=== PATIENT | male | born 1955 | race Caucasian/White ===

== ENCOUNTER 2018-01-17 11:22 | Emergency (ER) | payer MEDICARE ==
[2018-01-17 13:31] VITALS: RESP 18
[2018-01-17 13:40] LABS: Basophils % (A) 0 %; Eosinophils # (A) 0.4 k/uL (0-0.7); Eosinophils % (A) 5 %; HCT 43.5 % (39.0-53.0); HGB 14.3 gm/dL (13.0-17.5); Lymphocytes # (A) 0.9 k/uL (1.0-4.8); Lymphocytes % (A) 11 %; MCH 26.9 pg (25.0-35.0); MCHC 32.9 g/dL (31.0-37.0); MCV 81.7 fL (80.0-100.0); Mean Platelet Volume 6.6; Monocytes # (A) 0.4 k/uL (0-1.0); Monocytes % (A) 5 %; Neutrophils # (A) 6.3 k/uL (1.3-7.7); Neutrophils % (A) 77 %; Platelet Count 315 k/uL (150-450); RBC 5.32 m/uL (4.30-5.90); RDW 13.4 % (11.5-15.5); WBC 8.2 k/uL (3.8-10.6)
[2018-01-17 13:52] LABS: D-Dimer 0.52 mg/L FEU (<0.60); Partial Thromboplastin Time 25.7 sec (22.0-30.0); Prothrombin Time 9.9 sec (9.0-12.0)
[2018-01-17 13:53] LABS: ALT 61 U/L (21-72); AST 32 U/L (17-59); Albumin 4.4 g/dL (3.5-5.0); Alkaline Phosphatase 98 U/L (38-126); Anion Gap 11 mmol/L; Blood Urea Nitrogen 11 mg/dL (9-20); Calcium 9.9 mg/dL (8.4-10.2); Carbon Dioxide 29 mmol/L (22-30); Chloride 101 mmol/L (98-107); Glucose 98 mg/dL (74-99); Potassium 4.5 mmol/L (3.5-5.1); Sodium 141 mmol/L (137-145); Total Bilirubin 0.7 mg/dL (0.2-1.3); Total Protein 7.1 g/dL (6.3-8.2)
--- NOTE | 2018-01-17 14:03 | XR ---
EXAMINATION TYPE: XR chest 2V DATE OF EXAM: 01/17/2018 COMPARISON: NONE HISTORY: Shortness of breath TECHNIQUE: Frontal and lateral views of the chest are obtained. FINDINGS: Scattered senescent parenchymal changes noted. No evidence for infiltrate. No evidence for atelectasis. Heart size is stable. Mediastinal structures are stable and grossly unremarkable. No evidence for hilar prominence. Degenerative changes dorsal spine. IMPRESSION: 1. No evidence for acute pulmonary disease.
--- NOTE | 2018-01-17 14:07 | XR ---
EXAMINATION TYPE: XR cervical spine comp DATE OF EXAM: 01/17/2018 CLINICAL HISTORY: pain COMPARISON: NONE TECHNIQUE: Frontal, lateral, oblique, swimmers, and open mouth view of the cervical spine are obtaine d. FINDINGS: There is reversal of normal cervical lordosis which can be seen in patients with muscle spa sticity. Severe degenerative disc space narrowing and spondylosis identified at C5-6 and C6-7. No donald dence for acute fracture or subluxation. Foraminal encroachment seen bilaterally at C6-7. IMPRESSION: No acute fracture or dislocation is seen in the cervical spine.ICD 10 NO FRACTURE, INITI AL EVALUATION
--- NOTE | 2018-01-17 14:44 | ED ---
General Adult HPI - General Chief complaint: Recheck/Abnormal Lab/Rx Stated complaint: arm pain Time Seen by Provider: 01/17/18 13:08 Source: patient, RN notes reviewed Mode of arrival: ambulatory Limitations: no limitations - History of Present Illness Initial comments: This a 62-year-old male presents emergency Department chief complaint right arm pain. Patient states symptoms have been present for last day or so. Patient states that he felt that it slipped and wrong he has no associated weakness. Patient states it's worse with movement. He denies headache, dizziness, nausea , vomiting, diarrhea patient denies any fevers chills chest pain or shortness of breath. He states that he had spasm on the left side of his ribs that resolved after only a few seconds. Patient went to urgent care sent here for further evaluation because of his history. Patient denies current chest pain. - Related Data Home Medications Medication Instructions Recorded Confirmed Aspirin 81 mg PO DAILY 01/17/18 01/17/18 Calcium Carbonate [Calcium] 600 mg PO DAILY 01/17/18 01/17/18 Dapsone 50 mg PO HS 01/17/18 01/17/18 Levothyroxine Sodium [Synthroid] 225 mcg PO DAILY 01/17/18 01/17/18 Lisinopril 40 mg PO DAILY 01/17/18 01/17/18 Metoprolol Succinate [Toprol XL] 50 mg PO DAILY 01/17/18 01/17/18 Multivitamins, Thera [Multivitamin 1 tab PO DAILY 01/17/18 01/17/18 (formulary)] Simvastatin [Zocor] 40 mg PO DAILY 01/17/18 01/17/18 amLODIPine [Norvasc] 5 mg PO DAILY 01/17/18 01/17/18 Allergies Allergy/AdvReac Type Severity Reaction Status Date / Time gluten Allergy Rash/Hives Verified 01/17/18 12:18 Review of Systems ROS Statement: Those systems with pertinent positive or pertinent negative responses have been documented in the HPI. ROS Other: All systems not noted in ROS Statement are negative. Past Medical History Past Medical History: Cancer, Hyperlipidemia, Hypertension Additional Past Medical History / Comment(s): prostate, lymphoma, thyroid and melanoma cancer History of Any Multi-Drug Resistant Organisms: None Reported Additional Past Surgical History / Comment(s): lymph node removal Past Psychological History: No Psychological Hx Reported Smoking Status: Never smoker Past Alcohol Use History: None Reported Past Drug Use History: None Reported General Exam Limitations: no limitations General appearance: alert, in no apparent distress Head exam: Present: atraumatic, normocephalic, normal inspection Eye exam: Present: normal appearance, PERRL, EOMI. Absent: scleral icterus, conjunctival injection, periorbital swelling Neck exam: Present: normal inspection, full ROM. Absent: tenderness, meningismus, lymphadenopathy Respiratory exam: Present: normal lung sounds bilaterally. Absent: respiratory distress, wheezes, rales, rhonchi, stridor, chest wall tenderness Cardiovascular Exam: Present: regular rate, normal rhythm, normal heart sounds. Absent: systolic murmur, diastolic murmur, rubs, gallop, clicks GI/Abdominal exam: Present: soft, normal bowel sounds. Absent: distended, tenderness, guarding, rebound, rigid Course Vital Signs 01/17/18 01/17/18 11:43 13:30 Temperature 98.0 F Pulse Rate 73 69 Respiratory 20 18 Rate Blood Pressure 138/81 145/65 O2 Sat by Pulse 96 95 Oximetry Medical Decision Making - Medical Decision Making 62-year-old male presented for right arm pain. This is not cardiac in nature. Patient has normal lab work. Patient chest x-ray is unremarkable does have severe degenerative changes on cervical x-ray. Patient's symptoms are related to cervical radiculopathy. Patiently discharges time he states he'll take Tylenol Motrin return for any worsening symptoms. - Lab Data Result diagrams: 01/17/18 13:25 01/17/18 13:25 Lab Results 01/17/18 01/17/18 01/17/18 Range/Units 13:25 13:25 13:25 WBC 8.2 (3.8-10.6) k/uL RBC 5.32 (4.30-5.90) m/uL Hgb 14.3 (13.0-17.5) gm/dL Hct 43.5 (39.0-53.0) % MCV 81.7 (80.0-100.0) fL MCH 26.9 (25.0-35.0) pg MCHC 32.9 (31.0-37.0) g/dL RDW 13.4 (11.5-15.5) % Plt Count 315 (150-450) k/uL Neutrophils % 77 % Lymphocytes % 11 % Monocytes % 5 % Eosinophils % 5 % Basophils % 0 % Neutrophils # 6.3 (1.3-7.7) k/uL Lymphocytes # 0.9 L (1.0-4.8) k/uL Monocytes # 0.4 (0-1.0) k/uL Eosinophils # 0.4 (0-0.7) k/uL Basophils # 0.0 (0-0.2) k/uL PT 9.9 (9.0-12.0) sec INR 1.0 (<1.2) APTT 25.7 (22.0-30.0) sec D-Dimer 0.52 (<0.60) mg/L FEU Sodium 141 (137-145) mmol/L Potassium 4.5 (3.5-5.1) mmol/L Chloride 101 (98-107) mmol/L Carbon Dioxide 29 (22-30) mmol/L Anion Gap 11 mmol/L BUN 11 (9-20) mg/dL Creatinine 0.87 (0.66-1.25) mg/dL Est GFR (CKD-EPI)AfAm >90 (>60 ml/min/1.73 sqM) Est GFR (CKD-EPI)NonAf >90 (>60 ml/min/1.73 sqM) Glucose 98 (74-99) mg/dL Calcium 9.9 (8.4-10.2) mg/dL Total Bilirubin 0.7 (0.2-1.3) mg/dL AST 32 (17-59) U/L ALT 61 (21-72) U/L Alkaline Phosphatase 98 (38-126) U/L Troponin I (0.000-0.034) ng/mL Total Protein 7.1 (6.3-8.2) g/dL Albumin 4.4 (3.5-5.0) g/dL 01/17/18 Range/Units 13:25 WBC (3.8-10.6) k/uL RBC (4.30-5.90) m/uL Hgb (13.0-17.5) gm/dL Hct (39.0-53.0) % MCV (80.0-100.0) fL MCH (25.0-35.0) pg MCHC (31.0-37.0) g/dL RDW (11.5-15.5) % Plt Count (150-450) k/uL Neutrophils % % Lymphocytes % % Monocytes % % Eosinophils % % Basophils % % Neutrophils # (1.3-7.7) k/uL Lymphocytes # (1.0-4.8) k/uL Monocytes # (0-1.0) k/uL Eosinophils # (0-0.7) k/uL Basophils # (0-0.2) k/uL PT (9.0-12.0) sec INR (<1.2) APTT (22.0-30.0) sec D-Dimer (<0.60) mg/L FEU Sodium (137-145) mmol/L Potassium (3.5-5.1) mmol/L Chloride (98-107) mmol/L Carbon Dioxide (22-30) mmol/L Anion Gap mmol/L BUN (9-20) mg/dL Creatinine (0.66-1.25) mg/dL Est GFR (CKD-EPI)AfAm (>60 ml/min/1.73 sqM) Est GFR (CKD-EPI)NonAf (>60 ml/min/1.73 sqM) Glucose (74-99) mg/dL Calcium (8.4-10.2) mg/dL Total Bilirubin (0.2-1.3) mg/dL AST (17-59) U/L ALT (21-72) U/L Alkaline Phosphatase (38-126) U/L Troponin I <0.012 (0.000-0.034) ng/mL Total Protein (6.3-8.2) g/dL Albumin (3.5-5.0) g/dL Disposition Clinical Impression: Cervical radiculopathy Disposition: HOME SELF-CARE Condition: Stable Instructions: Cervical Radiculopathy (ED) Additional Instructions: Please return to the Emergency Department if symptoms worsen or any other concerns. Is patient prescribed a controlled substance at d/c from ED?: No Referrals: Audie Ann MD [Primary Care Provider] - 1-2 days Time of Disposition: 14:44
[2018-01-17 14:51] VITALS: BP 129/70; PULSE 61; TEMP 97.6
== END 2018-01-17 14:53 | disposition home or self-care (01) ==
LOC: EC 11:22
DX: M54.12 Radiculopathy, cervical region (principal); E78.5 Hyperlipidemia, unspecified; I10 Essential (primary) hypertension; Z85.72 Personal history of non-Hodgkin lymphomas; Z85.850 Personal history of malignant neoplasm of thyroid; Z85.820 Personal history of malignant melanoma of skin; Z79.82 Long term (current) use of aspirin; Z79.899 Other long term (current) drug therapy; Z91.018 Allergy to other foods
CPT/HCPCS: 36415; 71046; 72050; 80053; 84484; 85025; 85379; 85610; 85730; 99283

== ENCOUNTER → 2018-10-31 | Outpatient (CLI) | payer MEDICARE ==
--- NOTE | 2018-10-31 15:45 | CT ---
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 TECHNIQUE: Examination was done in axial plane without intravenous contrast. Coronal and sagittal r econstructions performed. CT DLP: 1145.4 mGycm Automated exposure control for dose reduction was used. FINDINGS: There is no evidence of acute intracranial hemorrhage, acute ischemic changes, mass, mass-effect, or extra-axial fluid collection. There is no effacement of cerebral sulci or basal subarachnoid cister ns. There is no hydrocephalus. There is no midline shift. Sprague-white matter distinction is preserv ed. Atherosclerotic calcifications carotid siphons. Leftward nasal septal deviation. Scattered moderate mucosal thickening ethmoid air cells and a 2.4 cm polyp or mucosal retention cyst in the left frontal sinus. Lobulated mucosal thickening along the fl oors of the left greater than right maxillary sinuses. Radha bullosa right nasal cavity. Prior right cataract surgery. Otherwise, the globes appear relatively symmetric. No retrobulbar abnor mality identified. Orbits appear intact. Mastoid air cells well pneumatized. Small air fluid level ri ght sphenoid sinus. IMPRESSION: 1. Aside from prior cataract surgery on the right, the globes appear relatively symmetric. No retrobu lbar abnormality identified by noncontrast CT. 2. Moderate chronic paranasal sinus disease. Air-fluid level in the right sphenoid sinus could repres ent a superimposed acute sinusitis. 3. No acute intracranial abnormality seen.
== END | disposition home or self-care (01) ==
LOC: RADCTMAIN 14:22
PROVIDERS: ATTEND Internal Medicine
DX: R51 Headache (principal); Z98.41 Cataract extraction status, right eye; Z85.840 Personal history of malignant neoplasm of eye
CPT/HCPCS: 70450

== ENCOUNTER → 2019-12-08 | Outpatient (CLI) | payer MEDICARE ==
--- NOTE | 2019-12-08 10:36 | US ---
EXAMINATION TYPE: US venous doppler duplex LE LT DATE OF EXAM: 12/08/2019 10:09 AM COMPARISON: NONE CLINICAL HISTORY: M79.662 Pain in left lower leg. Patient felt a pop left lower leg yesterday SIDE PERFORMED: left TECHNIQUE: The lower extremity deep venous system is examined utilizing real time linear array sonog naomi with graded compression, doppler sonography and color-flow sonography. VESSELS IMAGED: External Iliac Vein (EIV) Common Femoral Vein Deep Femoral Vein Greater Saphenous Vein * Femoral Vein Popliteal Vein Small Saphenous Vein * Proximal Calf Veins (* superficial vessels) Grayscale, color doppler, spectral doppler imaging performed of the deep veins of the left lower extr emity. There is normal flow, compressibility, vascular waveforms. Left Leg: No evidence of DVT IMPRESSION: No sonographic evidence of deep venous thrombosis within the left lower extremity.
== END | disposition home or self-care (01) ==
LOC: RADUSWWP 09:39
PROVIDERS: ATTEND Internal Medicine
DX: M79.662 Pain in left lower leg (principal)

== ENCOUNTER → 2020-07-12 | Outpatient (CLI) | payer MEDICARE ==
--- NOTE | 2020-07-12 20:02 | CT ---
EXAMINATION TYPE: CT facial bones wo/w con DATE OF EXAM: 07/12/2020 COMPARISON: None HISTORY: Non hodgkins lymphoma. Pt c/o pain behind rt eye, jaw pain CT DLP: 1721.60 mGycm Automated exposure control for dose reduction was used. CONTRAST: Performed with IV Contrast, patient injected with 100 mL of Isovue 300. Images were obtained from the subglottic trachea to the top of the frontal sinuses with IV contrast. FINDINGS: The mandibular ring is intact. Temporomandibular joints appear normal. Zygomatic arches appear normal . Maxilla is intact. There is bilateral mucus retention cysts in the maxillary sinuses. Nasal bone is intact. Orbital margins are intact. There is no evidence of a blowout fracture. There is left fronta l large mucus retention cyst. There is no expansion. I see no focal bone destruction. There is no donald dence of retro-orbital mass. The globes are symmetric. There is mild ethmoid sinus mucosal thickening . Visualized temporal bones are intact. IMPRESSION: There is evidence of sinusitis with mucous retention cysts. No bone destruction. No evidence of a sof t tissue mass.
--- NOTE | 2020-07-12 20:06 | CT ---
EXAMINATION TYPE: CT soft tissue neck wo/w con DATE OF EXAM: 07/12/2020 COMPARISON: None HISTORY: Non hodgkins lymphoma. Pt c/o a feeling of a lump in throat CT DLP: 1177.90 mGycm Automated exposure control for dose reduction was used. CONTRAST: Performed with IV Contrast, patient injected with 100 mL of Isovue 300. Images were obtained from the aortic arch to the top of the frontal sinuses with IV contrast. There is normal branching of the great vessels on the aortic arch. There is no evidence of superior m ediastinal adenopathy. Thyroid gland is symmetric. There are a few anterior triangle cervical lymph n odes that measure up to 1.4 cm in greatest dimension. The parotid glands and submandibular salivary g lands are symmetric. I see no discrete neck mass. Epiglottis is normal. Prevertebral soft tissues appear normal. The tonsils and adenoids appear normal . There is no evidence of a pharyngeal mass. Subglottic trachea appears normal. There are spondylotic changes in the cervical spine at C5-6 and C6-7 with disc space narrowing and anterior spur formation . There is no compression fracture. IMPRESSION: There are few nonspecific cervical lymph nodes. No evidence of a pharyngeal mass.
== END | disposition home or self-care (01) ==
LOC: RADCTMAIN 17:55
PROVIDERS: ATTEND Family Medicine
DX: J34.1 Cyst and mucocele of nose and nasal sinus (principal); J32.9 Chronic sinusitis, unspecified; C85.90 Non-Hodgkin lymphoma, unspecified, unspecified site; C43.9 Malignant melanoma of skin, unspecified; R22.0 Localized swelling, mass and lump, head
CPT/HCPCS: 82565; 84520; 70488; 70492; 36415; Q9967

== ENCOUNTER 2021-04-26 23:59 | Observation (INO) | payer MEDICARE ==
[2021-04-27 07:39] LABS: Partial Thromboplastin Time 22.7 sec (22.0-30.0); Prothrombin Time 10.4 sec (9.0-12.0)
[2021-04-27 07:40] LABS: Basophils # (A) 0.1 k/uL (0-0.2); Basophils % (A) 1 %; Eosinophils # (A) 0.3 k/uL (0-0.7); Eosinophils % (A) 4 %; HCT 38.6 % (39.0-53.0); HGB 12.5 gm/dL (13.0-17.5); Lymphocytes # (A) 1.2 k/uL (1.0-4.8); Lymphocytes % (A) 14 %; MCH 27.9 pg (25.0-35.0); MCHC 32.3 g/dL (31.0-37.0); MCV 86.4 fL (80.0-100.0); Mean Platelet Volume 7.2; Monocytes # (A) 0.4 k/uL (0-1.0); Monocytes % (A) 5 %; Neutrophils # (A) 5.9 k/uL (1.3-7.7); Neutrophils % (A) 73 %; Platelet Count 328 k/uL (150-450); RBC 4.47 m/uL (4.30-5.90); RDW 14.7 % (11.5-15.5); WBC 8.1 k/uL (3.8-10.6)
[2021-04-27 07:43] LABS: ALT 276 U/L (4-49); AST 125 U/L (17-59); African American GFR (CKD) >90 (>60 ml/min/1.73 sqM); Albumin 3.8 g/dL (3.5-5.0); Albumin/Globulin Ratio 1.4; Alkaline Phosphatase 140 U/L (38-126); Anion Gap 7 mmol/L; Blood Urea Nitrogen 17 mg/dL (9-20); Calcium 8.9 mg/dL (8.4-10.2); Carbon Dioxide 29 mmol/L (22-30); Chloride 104 mmol/L (98-107); Globulin 2.7 g/dL; Glucose 151 mg/dL (74-99); Lipase 83 U/L (23-300); Magnesium 1.9 mg/dL (1.6-2.3); Non-African American GFR(CKD) 78 (>60 ml/min/1.73 sqM); Phosphorus 3.1 mg/dL (2.5-4.5); Potassium 3.7 mmol/L (3.5-5.1); Sodium 140 mmol/L (137-145); Total Bilirubin 0.8 mg/dL (0.2-1.3); Total Protein 6.5 g/dL (6.3-8.2)
[2021-04-27] MEDS ORDERED: NALOXONE 0.4 MG/ML 1 ML VIAL IV PRN (08:24)
[2021-04-27] MEDS ORDERED: MORPHINE SULFATE 4 MG/ML SYRINGE IV PRN (08:24)
[2021-04-27] MEDS ORDERED: ONDANSETRON 4 MG/2 ML VIAL IVP PRN (08:24)
[2021-04-27 09:12] LABS: Basophils % (A) 0 %; Eosinophils # (A) 0.1 k/uL (0-0.7); Eosinophils % (A) 2 %; HCT 38.2 % (39.0-53.0); HGB 12.1 gm/dL (13.0-17.5); Lymphocytes # (A) 0.6 k/uL (1.0-4.8); Lymphocytes % (A) 12 %; MCH 27.5 pg (25.0-35.0); MCHC 31.7 g/dL (31.0-37.0); MCV 86.7 fL (80.0-100.0); Mean Platelet Volume 6.9; Monocytes # (A) 0.3 k/uL (0-1.0); Monocytes % (A) 6 %; Neutrophils # (A) 3.7 k/uL (1.3-7.7); Neutrophils % (A) 77 %; Platelet Count 271 k/uL (150-450); RDW 14.5 % (11.5-15.5); WBC 4.7 k/uL (3.8-10.6)
[2021-04-27 09:25] LABS: African American GFR (CKD) >90 (>60 ml/min/1.73 sqM); Albumin 3.7 g/dL (3.5-5.0); Albumin/Globulin Ratio 1.4; Alkaline Phosphatase 161 U/L (38-126); Anion Gap 5 mmol/L; Blood Urea Nitrogen 14 mg/dL (9-20); Carbon Dioxide 31 mmol/L (22-30); Chloride 105 mmol/L (98-107); Globulin 2.7 g/dL; Glucose 115 mg/dL (74-99); Lipase 42 U/L (23-300); Non-African American GFR(CKD) >90 (>60 ml/min/1.73 sqM); Potassium 3.8 mmol/L (3.5-5.1); Sodium 141 mmol/L (137-145); Total Bilirubin 1.5 mg/dL (0.2-1.3); Total Protein 6.4 g/dL (6.3-8.2)
[2021-04-27 09:45] LABS: ALT 733 U/L (4-49); AST 823 U/L (17-59)
--- NOTE | 2021-04-27 09:56 | US ---
EXAMINATION TYPE: US gallbladder DATE OF EXAM: 04/27/2021 COMPARISON: NONE CLINICAL HISTORY: abdominal pain. Pain exam limitations due to body habitus. EXAM MEASUREMENTS: Liver Length: 18 cm Gallbladder Wall: .4 cm. This is thickened CBD: .5 cm Right Kidney: 11.7 x 5.9 x 5.6 cm Pancreas: Obscured by bowel gas Liver: Increased attenuation Gallbladder: Gallstone seen. Evidence for sonographic Ross's sign: No CBD: wnl Right Kidney: No hydronephrosis or masses seen IMPRESSION: 1. Hepatomegaly. Some fatty infiltration is present. 2. Cholelithiasis. Gallbladder wall thickening is present. Correlate for acute cholecystitis.
--- NOTE | 2021-04-27 11:39 | P.GSHP ---
<Britt Reese - Last Filed: 04/27/21 13:24> History of Present Illness H&P Date: 04/27/21 CHIEF COMPLAINT: Abdominal pain HISTORY OF PRESENT ILLNESS: This is a 66-year-old male with a known history of lymphoma status post radiation treatment, prostate cancer status post radiation treatment, hypertension, hyperlipidemia and melanoma. He presents to the hospital with complaints of pain across the rib cage that radiates to the back. Patient reports that the pain was very severe and onset was yesterday evening after he had eaten fried chicken nuggets and cake. He reports feeling very sweaty and clammy. He thought that he may be having a heart attack and came into the ER for further evaluation and treatment. His troponin was negative d- dimer negative. They did do a CTA of the chest abdomen and pelvis that showed no PE minimal atelectasis. Cholelithiasis with multiple small stones in the distal common bile duct and adjacent duodenal lumen. No biliary tree dilation. Mass versus complex cyst of the lower pole right kidney. Right perinephric changes which could be secondary to pyelonephritis. Patient denies any fever. Denies any nausea or vomiting. He reports having similar symptoms last Sunday that lasted for a couple of hours and then resolved on their own. He had an abdominal ultrasound showing hepatomegaly. Some fatty infiltration is present. Cholelithiasis. Gallbladder wall thickening. Correlate for acute cholecystitis. Patient's LFTs are trending upwards. Patient is currently on the IV antibiotics and in the ER. Patient denies any urinary symptoms. PAST MEDICAL HISTORY: See list. PAST SURGICAL HISTORY: See list. MEDICATIONS: See list. ALLERGIES: See list. SOCIAL HISTORY: No illicit drug use. REVIEW OF SYSTEMS: CONSTITUTIONAL: Denies fever or chills. HEENT: Denies blurred vision, vision changes, or eye pain. Denies hemoptysis CARDIOVASCULAR: Denies chest pain or pressure. RESPIRATORY: No shortness of breath. GASTROINTESTINAL: See HPI for pertinent findings HEMATOLOGIC: Denies bleeding disorders. GENITOURINARY: Denies any blood in urine or increased urinary frequency. SKIN: Denies pruitis. Denies rash. PHYSICAL EXAM: VITAL SIGNS: Reviewed GENERAL: Well-developed in no acute distress. HEENT: No sclera icterus. Extraocular movements grossly intact. Moist buccal mucosa. Head is atraumatic, normocephalic. No nasal drainage. ABDOMEN: Soft. Nondistended. Epigastric and right upper quadrant tenderness with palpation NEUROLOGIC: Alert and oriented. Cranial nerves II through XII grossly intact. LABORATORY DATA: WBC is 4.7 hemoglobin 12.1 platelets 271 sodium 141 potassium 3.8 creatinine 0.84 Total bilirubin 0.8 up to 1.5 AST 125 up to 823 ALT 276 up to733 and alk phos 140 up to 161 Troponin negative d-dimer normal lipase normal IMAGING: CAT scan findings and ultrasound findings as stated above ASSESSMENT: 1. Acute cholecystitis 2. Choledocholithiasis PLAN: -Consult GI service regarding choledocholithiasis -Continue IV fluids -Continue IV antibiotics -Continue pain medication as needed -Further recommendations forthcoming per surgeon -GI prophylaxis Protonix and DVT prophylaxis subcu heparin Physician Icu Manager note has been reviewed by physician. Signing provider agrees with the documented findings, assessment, and plan of care. Past Medical History Past Medical History: Cancer, Hyperlipidemia, Hypertension Additional Past Medical History / Comment(s): prostate, lymphoma, thyroid and melanoma cancer History of Any Multi-Drug Resistant Organisms: None Reported Additional Past Surgical History / Comment(s): lymph node removal Past Psychological History: No Psychological Hx Reported Past Alcohol Use History: None Reported Past Drug Use History: None Reported - Past Family History Father Family Medical History: AICD/Pacemaker Additional Family Medical History / Comment(s): pasted at 58 from Heart related issuses Medications and Allergies Home Medications Medication Instructions Recorded Confirmed Type Calcium Carbonate [Calcium] 600 mg PO DAILY 01/17/18 04/27/21 History Dapsone 25 mg PO DAILY 01/17/18 04/27/21 History Multivitamins, Thera [Multivitamin 1 tab PO DAILY 01/17/18 04/27/21 History (formulary)] lisinopriL 40 mg PO DAILY 01/17/18 04/27/21 History Flutic[facility] [Flonase 2 spr EA NOSTRIL DAILY PRN 04/27/21 04/27/21 [facility]] Gabapentin [Neurontin] 100 mg PO BID 04/27/21 04/27/21 History Levothyroxine Sodium [Synthroid] 25 mcg PO DAILY 04/27/21 04/27/21 History Levothyroxine Sodium [Synthroid] 200 mcg PO DAILY 04/27/21 04/27/21 History Metoprolol Tartrate [Lopressor] 25 mg PO HS 04/27/21 04/27/21 History Metoprolol Tartrate [Lopressor] 50 mg PO DAILY 04/27/21 04/27/21 History Simvastatin [Zocor] 20 mg PO DAILY 04/27/21 04/27/21 History Allergies Allergy/AdvReac Type Severity Reaction Status Date / Time gluten Allergy Rash/Hives Verified 04/27/21 07:55 Results - Labs 04/27/21 08:40 04/27/21 08:40 Abnormal Lab Results - Last 24 Hours (Table) 04/27/21 04/27/21 04/27/21 Range/Units 00:06 00:06 08:40 Hgb 12.5 L 12.1 L (13.0-17.5) gm/dL Hct 38.6 L 38.2 L (39.0-53.0) % Lymphocytes # 0.6 L (1.0-4.8) k/uL Carbon Dioxide (22-30) mmol/L Glucose 151 H (74-99) mg/dL Total Bilirubin (0.2-1.3) mg/dL AST 125 H (17-59) U/L ALT 276 H (4-49) U/L Alkaline Phosphatase 140 H (38-126) U/L 04/27/21 Range/Units 08:40 Hgb (13.0-17.5) gm/dL Hct (39.0-53.0) % Lymphocytes # (1.0-4.8) k/uL Carbon Dioxide 31 H (22-30) mmol/L Glucose 115 H (74-99) mg/dL Total Bilirubin 1.5 H (0.2-1.3) mg/dL AST 823 H (17-59) U/L ALT 733 H (4-49) U/L Alkaline Phosphatase 161 H (38-126) U/L Diabetes panel 04/27/21 04/27/21 Range/Units 00:06 08:40 Sodium 140 141 (137-145) mmol/L Potassium 3.7 3.8 (3.5-5.1) mmol/L Chloride 104 105 (98-107) mmol/L Carbon Dioxide 29 31 H (22-30) mmol/L BUN 17 14 (9-20) mg/dL Creatinine 0.99 0.84 (0.66-1.25) mg/dL Glucose 151 H 115 H (74-99) mg/dL Calcium 8.9 9.0 (8.4-10.2) mg/dL AST 125 H 823 H (17-59) U/L ALT 276 H 733 H (4-49) U/L Alkaline Phosphatase 140 H 161 H (38-126) U/L Total Protein 6.5 6.4 (6.3-8.2) g/dL Albumin 3.8 3.7 (3.5-5.0) g/dL Calcium panel 04/27/21 04/27/21 Range/Units 00:06 08:40 Calcium 8.9 9.0 (8.4-10.2) mg/dL Phosphorus 3.1 (2.5-4.5) mg/dL Albumin 3.8 3.7 (3.5-5.0) g/dL Pituitary panel 04/27/21 04/27/21 Range/Units 00:06 08:40 Sodium 140 141 (137-145) mmol/L Potassium 3.7 3.8 (3.5-5.1) mmol/L Chloride 104 105 (98-107) mmol/L Carbon Dioxide 29 31 H (22-30) mmol/L BUN 17 14 (9-20) mg/dL Creatinine 0.99 0.84 (0.66-1.25) mg/dL Glucose 151 H 115 H (74-99) mg/dL Calcium 8.9 9.0 (8.4-10.2) mg/dL Adrenal panel 04/27/21 04/27/21 Range/Units 00:06 08:40 Sodium 140 141 (137-145) mmol/L Potassium 3.7 3.8 (3.5-5.1) mmol/L Chloride 104 105 (98-107) mmol/L Carbon Dioxide 29 31 H (22-30) mmol/L BUN 17 14 (9-20) mg/dL Creatinine 0.99 0.84 (0.66-1.25) mg/dL Glucose 151 H 115 H (74-99) mg/dL Calcium 8.9 9.0 (8.4-10.2) mg/dL Total Bilirubin 0.8 1.5 H (0.2-1.3) mg/dL AST 125 H 823 H (17-59) U/L ALT 276 H 733 H (4-49) U/L Alkaline Phosphatase 140 H 161 H (38-126) U/L Total Protein 6.5 6.4 (6.3-8.2) g/dL Albumin 3.8 3.7 (3.5-5.0) g/dL <Eriberto Herron - Last Filed: 04/27/21 19:07> History of Present Illness As above. Patient presents with abdominal pain. CAT scan shows choledocholithiasis. Scheduled for ERCP tomorrow. Continue antibiotics. Nothing by mouth after midnight. We'll follow. Surgical - Exam Vital Signs Temp Pulse Resp BP Pulse Ox 97.8 F 72 16 142/71 96 04/27/21 07:00 04/27/21 07:00 04/27/21 07:00 04/27/21 07:00 04/27/21 07:00 Results - Labs 04/27/21 08:40 04/27/21 08:40 Abnormal Lab Results - Last 24 Hours (Table) 04/27/21 04/27/21 04/27/21 Range/Units 00:06 00:06 08:40 Hgb 12.5 L 12.1 L (13.0-17.5) gm/dL Hct 38.6 L 38.2 L (39.0-53.0) % Lymphocytes # 0.6 L (1.0-4.8) k/uL Carbon Dioxide (22-30) mmol/L Glucose 151 H (74-99) mg/dL Total Bilirubin (0.2-1.3) mg/dL AST 125 H (17-59) U/L ALT 276 H (4-49) U/L Alkaline Phosphatase 140 H (38-126) U/L 04/27/21 Range/Units 08:40 Hgb (13.0-17.5) gm/dL Hct (39.0-53.0) % Lymphocytes # (1.0-4.8) k/uL Carbon Dioxide 31 H (22-30) mmol/L Glucose 115 H (74-99) mg/dL Total Bilirubin 1.5 H (0.2-1.3) mg/dL AST 823 H (17-59) U/L ALT 733 H (4-49) U/L Alkaline Phosphatase 161 H (38-126) U/L Diabetes panel 04/27/21 04/27/21 Range/Units 00:06 08:40 Sodium 140 141 (137-145) mmol/L Potassium 3.7 3.8 (3.5-5.1) mmol/L Chloride 104 105 (98-107) mmol/L Carbon Dioxide 29 31 H (22-30) mmol/L BUN 17 14 (9-20) mg/dL Creatinine 0.99 0.84 (0.66-1.25) mg/dL Glucose 151 H 115 H (74-99) mg/dL Calcium 8.9 9.0 (8.4-10.2) mg/dL AST 125 H 823 H (17-59) U/L ALT 276 H 733 H (4-49) U/L Alkaline Phosphatase 140 H 161 H (38-126) U/L Total Protein 6.5 6.4 (6.3-8.2) g/dL Albumin 3.8 3.7 (3.5-5.0) g/dL Calcium panel 04/27/21 04/27/21 Range/Units 00:06 08:40 Calcium 8.9 9.0 (8.4-10.2) mg/dL Phosphorus 3.1 (2.5-4.5) mg/dL Albumin 3.8 3.7 (3.5-5.0) g/dL Pituitary panel 04/27/21 04/27/21 Range/Units 00:06 08:40 Sodium 140 141 (137-145) mmol/L Potassium 3.7 3.8 (3.5-5.1) mmol/L Chloride 104 105 (98-107) mmol/L Carbon Dioxide 29 31 H (22-30) mmol/L BUN 17 14 (9-20) mg/dL Creatinine 0.99 0.84 (0.66-1.25) mg/dL Glucose 151 H 115 H (74-99) mg/dL Calcium 8.9 9.0 (8.4-10.2) mg/dL Adrenal panel 04/27/21 04/27/21 Range/Units 00:06 08:40 Sodium 140 141 (137-145) mmol/L Potassium 3.7 3.8 (3.5-5.1) mmol/L Chloride 104 105 (98-107) mmol/L Carbon Dioxide 29 31 H (22-30) mmol/L BUN 17 14 (9-20) mg/dL Creatinine 0.99 0.84 (0.66-1.25) mg/dL Glucose 151 H 115 H (74-99) mg/dL Calcium 8.9 9.0 (8.4-10.2) mg/dL Total Bilirubin 0.8 1.5 H (0.2-1.3) mg/dL AST 125 H 823 H (17-59) U/L ALT 276 H 733 H (4-49) U/L Alkaline Phosphatase 140 H 161 H (38-126) U/L Total Protein 6.5 6.4 (6.3-8.2) g/dL Albumin 3.8 3.7 (3.5-5.0) g/dL
[2021-04-27] MEDS ORDERED: FLUTICASONE 50MCG/SPRAY NASAL 16GM EA NOSTRIL PRN (13:17)
--- NOTE | 2021-04-27 13:51 | XR ---
EXAM: XR Chest, 1 View CLINICAL HISTORY: chest pain TECHNIQUE: Frontal view of the chest. COMPARISON: January 17, 2018. FINDINGS: Lungs: Minimal basilar atelectasis. Pleural space: Unremarkable. No pneumothorax. Heart: Mild enlargement of the heart. Mediastinum: Unremarkable. Bones/joints: Unremarkable. IMPRESSION: Mild atelectasis.
--- NOTE | 2021-04-27 13:55 | CT ---
EXAM: CT Angiography Chest With Intravenous Contrast CLINICAL HISTORY: R/O PE, Chest Pain, Abd Pain TECHNIQUE: Axial computed tomographic angiography images of the chest with intravenous contrast. CTDI is 24.87 mGy and DLP is 937.8 mGy-cm. This CT exam was performed using one or more of the following dose reduction techniques: automated exposure control, adjustment of the mA and/or kV according to patient size, and/or use of iterative reconstruction technique. MIP reconstructed images were created and reviewed. COMPARISON: No relevant prior studies available. FINDINGS: Pulmonary arteries: Unremarkable. No pulmonary embolism. Aorta: No acute findings. No thoracic aortic aneurysm. Lungs: Minimal atelectasis at the left lung base. No mass. Pleural space: Unremarkable. No significant effusion. No pneumothorax. Heart: Mild prominence of the heart. Minimal atherosclerosis including coronary artery calcifications. No significant pericardial effusion. No evidence of RV dysfunction. Bones/joints: Degenerative changes of the spine. Endplate osteophytes and disc space narrowing. No acute fracture. No dislocation. Soft tissues: Unremarkable. Lymph nodes: Unremarkable. No enlarged lymph nodes. Upper abdomen: Mildly elevated left hemidiaphragm. IMPRESSION: No PE. Minimal atelectasis. EXAM: CT Abdomen and Pelvis With Intravenous Contrast CLINICAL HISTORY: R/O PE, Chest Pain, Abd Pain TECHNIQUE: Axial computed tomography images of the abdomen and pelvis with intravenous contrast. CTDI is 51 mGy and DLP is 2528.7 mGy-cm. This CT exam was performed using one or more of the following dose reduction techniques: automated exposure control, adjustment of the mA and/or kV according to patient size, and/or use of iterative reconstruction technique. COMPARISON: No relevant prior studies available. FINDINGS: Lung bases: Unremarkable. No mass. No consolidation. ABDOMEN: Liver: Unremarkable. No mass. Gallbladder and bile ducts: The gallbladder is moderately distended in the distal common duct multiple punctate confluent stones. No duct dilation. The common duct measures at most 3 mm. Pancreas: Unremarkable. No mass. No ductal dilation. Spleen: Unremarkable. No splenomegaly. Adrenals: Unremarkable. No mass. Kidneys and ureters: Left kidney simple cyst. Right kidney exophytic posterolateral lower pole masslike area measuring 2.7 cm. Right kidney 3 mm nonobstructing stone. There is trace right perinephric fluid. Stomach and bowel: Punctate stones within the duodenum adjacent to the ampulla. Diverticulosis. No obstruction. No mucosal thickening. PELVIS: Appendix: Normal appendix. Bladder: Unremarkable. No mass. Reproductive: Multiple prostate radiation seeds. ABDOMEN and PELVIS: Intraperitoneal space: Unremarkable. No free air. No significant fluid collection. Bones/joints: Degenerative changes of the spine. Osteophytes, disc space narrowing and facet arthropathy. L4 pars defects. No acute fracture. No dislocation. Soft tissues: Unremarkable. Vasculature: Mild atherosclerosis. No abdominal aortic aneurysm. Lymph nodes: Unremarkable. No enlarged lymph nodes. IMPRESSION: 1. Cholelithiasis. Multiple small stones in the distal common duct and adjacent duodenal lumen. No biliary tree dilation. Consider gallbladder ultrasound for further evaluation. 2. Mass versus complex cyst of the lower pole of the right kidney. Right perinephric changes which could be secondary to pyelonephritis. Recommend follow-up.
[2021-04-27] MEDS: SODIUM CHLORIDE 0.9% 1,000 ML IV SCH ×2 (14:06→16:35)
[2021-04-27] MEDS: AMPICILLIN-SULBACTAM 3 GM in SODIUM CHLORIDE 0.9% 100 ML IVPB SCH ×2 (14:06→19:55)
[2021-04-27] MEDS: lisinopriL 20 MG TAB PO SCH (14:07)
[2021-04-27] MEDS: LEVOTHYROXINE 25 MCG TAB PO SCH (14:07)
[2021-04-27] MEDS: METOPROLOL TARTRATE 50 MG TAB PO SCH (14:07)
[2021-04-27] MEDS: LEVOTHYROXINE 100 MCG TAB PO SCH (14:07)
[2021-04-27] MEDS: CALCIUM CARBONATE 500 MG CHEWABLE PO SCH (15:12)
[2021-04-27] MEDS: MULTIVITAMINS, THERA 1 EACH TAB PO SCH (15:12)
--- NOTE | 2021-04-27 16:50 | P.CONS ---
History of Present Illness - Reason for Consult Consult date: 04/27/21 Abdominal Pain - Chief Complaint Abdominal Pain - History of Present Illness 66 year old man with history of lymphoma s/p radiation, HTN/HLD, melanoma presented with abdominal pain. Patient says that for the last few days he's had intermittent sharp abdominal pain in his RUQ. Today, he had very severe pain starting last night, which did not resolved with time. He presented to the Er for further evaluation. On admission he had CT scan done which demonstrated gallstones with thickened gallbladder wall. LFTs were concerning for choledocholithiasis as well. Patient was evaluated by surgery who recommend ERCP via GI service, and admission to medicine. Review of Systems All Systems reviewed and pertinent positives and negatives noted in HPI, all other symptoms are negative Past Medical History Past Medical History: Cancer, Hyperlipidemia, Hypertension Additional Past Medical History / Comment(s): prostate, lymphoma, thyroid and melanoma cancer History of Any Multi-Drug Resistant Organisms: None Reported Additional Past Surgical History / Comment(s): lymph node removal Past Anesthesia/Blood Transfusion Reactions: No Reported Reaction Past Psychological History: No Psychological Hx Reported Past Alcohol Use History: None Reported Past Drug Use History: None Reported - Past Family History Father Family Medical History: AICD/Pacemaker Additional Family Medical History / Comment(s): pasted at 58 from Heart related issuses Medications and Allergies Home Medications Medication Instructions Recorded Confirmed Type Calcium Carbonate [Calcium] 600 mg PO DAILY 01/17/18 04/27/21 History Dapsone 25 mg PO DAILY 01/17/18 04/27/21 History Multivitamins, Thera [Multivitamin 1 tab PO DAILY 01/17/18 04/27/21 History (formulary)] lisinopriL 40 mg PO DAILY 01/17/18 04/27/21 History Fluticasone Nasal [place] [Flonase 2 spr EA NOSTRIL DAILY PRN 04/27/21 04/27/21 History Nasal [place]] Gabapentin [Neurontin] 100 mg PO BID 04/27/21 04/27/21 History Levothyroxine Sodium [Synthroid] 25 mcg PO DAILY 04/27/21 04/27/21 History Levothyroxine Sodium [Synthroid] 200 mcg PO DAILY 04/27/21 04/27/21 History Metoprolol Tartrate [Lopressor] 25 mg PO HS 04/27/21 04/27/21 History Metoprolol Tartrate [Lopressor] 50 mg PO DAILY 04/27/21 04/27/21 History Simvastatin [Zocor] 20 mg PO DAILY 04/27/21 04/27/21 History Allergies Allergy/AdvReac Type Severity Reaction Status Date / Time gluten Allergy Rash/Hives Verified 04/27/21 07:55 Physical Exam Osteopathic Statement: *. No significant issues noted on an osteopathic s tructural exam other than those noted in the History and Physical/Consult. Vitals: Vital Signs Temp Pulse Resp BP Pulse Ox 04/27/21 15:58 98.3 F 76 18 131/79 97 04/27/21 15:00 78 16 133/71 95 04/27/21 14:00 78 04/27/21 08:00 16 04/27/21 07:00 97.8 F 72 16 142/71 96 Intake and Output 04/27/21 04/27/21 04/27/21 06:59 14:59 22:59 Intake Total 200 Balance 200 Intake: Oral 200 Other: Weight 127.006 kg 127.006 kg Gen: awake, alert HEENT: normocephalic, atraumatic, good hearing acuity, moist mucous membranes Resp: good air exchange, breathing comfortably with no accessory muscle use CVS: good distal perfusion x 4, GI: soft, right upper quadrant tenderness : no SPT, no CVAT, chavarria catheter not present MSK: no pitting edema, no clubbing Neuro: non-focal, moving all extremities Psych: cooperative, euthymic mood Results CBC & Chem 7: 04/27/21 08:40 04/27/21 08:40 Labs: Abnormal Lab Results - Last 24 Hours (Table) 04/27/21 04/27/21 04/27/21 Range/Units 00:06 00:06 08:40 Hgb 12.5 L 12.1 L (13.0-17.5) gm/dL Hct 38.6 L 38.2 L (39.0-53.0) % Lymphocytes # 0.6 L (1.0-4.8) k/uL Carbon Dioxide (22-30) mmol/L Glucose 151 H (74-99) mg/dL Total Bilirubin (0.2-1.3) mg/dL AST 125 H (17-59) U/L ALT 276 H (4-49) U/L Alkaline Phosphatase 140 H (38-126) U/L 04/27/21 Range/Units 08:40 Hgb (13.0-17.5) gm/dL Hct (39.0-53.0) % Lymphocytes # (1.0-4.8) k/uL Carbon Dioxide 31 H (22-30) mmol/L Glucose 115 H (74-99) mg/dL Total Bilirubin 1.5 H (0.2-1.3) mg/dL AST 823 H (17-59) U/L ALT 733 H (4-49) U/L Alkaline Phosphatase 161 H (38-126) U/L Assessment and Plan Assessment: Acute cholecystitis Choledocholithiasis -Admit to telemetry -GI consult for ERCP -Gen. surgery consult for cholecystectomy -Pain control -Nausea control -Nothing by mouth -Unasyn History of lymphoma Hypertension Hyperlipidemia Hypothyroidism -Home medications reviewed and reconciled Patient is a full code Heparin twice a day for DVT prophylaxis
--- NOTE | 2021-04-27 17:46 | CONS ---
CONSULTATION DATE OF SERVICE: April 27, 2021 REQUESTING PHYSICIAN: Dr. Herron. REASON FOR CONSULTATION: Elevated LFTs and CBD stone. HISTORY OF PRESENT ILLNESS: The patient is a 66-year-old pleasant white male came to the emergency room complaining of severe epigastric and chest pain that started late last night and early this morning. The pain continued to progressively get worse associated with some nausea but no emesis. He had a similar episode on Sunday that was 2 days ago, lasted for 4 or 5 hours and subsequently resolved. He came to the emergency room, was given some morphine and the pain symptoms have subsided. In the ER, he was noted to have elevated LFTs and repeat labs this morning showed worsening LFTs with ALT and AST in the range of 200 and 800 respectively and bilirubin that went up to 1.3. He did have a CT of the chest and abdomen done that did show evidence of small stones in the distal common bile duct suspicious suggestive of choledocholithiasis and hence we are consulted for an ERCP. Patient never had these symptoms in the past. Today he is doing well. No fever, no chills. He did have ultrasound of the gallbladder that showed gallstones and no biliary ductal dilation. PAST MEDICAL HISTORY: Hypertension, hyperlipidemia. PAST SURGICAL HISTORY: Lymphoma and prostate cancer. MEDICATIONS: At home, calcium, dapsone, multivitamin, lisinopril, Flonase, Synthroid, Lopressor, and Zocor. ALLERGIES: GLUTEN. SOCIAL HISTORY: No smoking. No alcohol use. FAMILY HISTORY: Unremarkable. REVIEW OF SYSTEMS: CARDIOPULMONARY: No chest pain or shortness of breath. GENITOURINARY: No dysuria or hematuria. MUSCULOSKELETAL unremarkable. SKIN unremarkable. ENDOCRINE unremarkable. PSYCHIATRIC unremarkable. NEUROLOGY: Unremarkable. ENT/VISION: Unremarkable. CONSTITUTIONAL: No recent weight loss. No fever, chills, night sweats. PHYSICAL EXAMINATION: He appears comfortable. No apparent distress. Vital signs are stable. Blood pressure is 112/86, pulse rate 82 per minute and afebrile. HEENT examination unremarkable. Conjunctivae pink. Sclerae anicteric. Oral cavity no lesions. Neck: No JVD or lymph node enlargement. Chest was clear to auscultation. Heart: Regular rate and rhythm. Abdomen: Soft. There was minimal tenderness in the epigastric area. Bowel sounds are positive. No organomegaly. Extremities: No pedal edema. Neuro: He is alert and oriented x3. No focal deficits. LABS: Labs done at the time of admission to the hospital: WBC 8.1, hemoglobin 12.5, platelets normal. Basic metabolic panel is within normal limits. T-bilirubin was 0.8, AST 125, ALT 276 and alkaline phosphatase 140. Today T-bilirubin is up to 1.5. AST 823, ALT 733, and alkaline phosphatase 161. Lipase is normal. Ultrasound showed gallstones. No biliary ductal dilation. CT scan of the abdomen did show evidence of choledocholithiasis. IMPRESSION: The patient presents to the hospital with severe epigastric pain and lower sternal chest pain that started yesterday evening and noted to have elevated LFTs and jaundice all consistent with gallstones and choledocholithiasis. CT of the abdomen did show evidence of distal common bile duct stone. Serum transaminases are significantly elevated with a T-bilirubin of 1.5 all consistent with CBD stones. RECOMMENDATIONS: We will proceed with ERCP tomorrow. Discussed with the patient risks, benefits and complications of the procedure and he is agreeable to it. In the meantime, he will start on a clear liquid diet and keep him n.p.o. after midnight. Monitor labs closely. We will follow with you. Thank you for this consultation. MMODL / IJN: [id number] /
[2021-04-27] MEDS: GABAPENTIN 100 MG CAP PO SCH (19:54)
[2021-04-27] MEDS: METOPROLOL TARTRATE 25 MG TAB PO SCH (19:54)
[2021-04-27] MEDS: HEPARIN SODIUM,PORCINE/PF 5,000 UNIT/0.5 ML SYRINGE SQ SCH (19:56)
[2021-04-27 23:28] LABS: Appearance,Urine Cloudy (Clear); Bilirubin,Urine 1+ (Negative); Blood,Urine Negative (Negative); Calcium Oxalate Crystals,Urine Many /hpf; Color,Urine Dark Yellow; Glucose,Urine (UA) Negative (Negative); Hyaline Casts,Urine 3 /lpf (0-2); Ketones,Urine Negative (Negative); Leukocyte Esterase,Urine Negative (Negative); Mucus,Urine Few /hpf; Nitrite,Urine Negative (Negative); Protein,Urine 1+ (Negative); RBC,Urine 5 /hpf (0-5); Specific Gravity,Urine 1.036 (1.001-1.035); WBC,Urine 4 /hpf (0-5)
[2021-04-27] MEDS ORDERED: SODIUM CHLORIDE 0.9% 100 ML BAG ONE (23:59)
[2021-04-27] MEDS ORDERED: MORPHINE SULFATE 4 MG/ML SYRINGE ONE (23:59)
[2021-04-27] MEDS ORDERED: AMPICILLIN-SULBACTAM 3 GM VIAL ONE (23:59)
[2021-04-28] MEDS: AMPICILLIN-SULBACTAM 3 GM in SODIUM CHLORIDE 0.9% 100 ML IVPB SCH ×3 (03:59→20:41)
[2021-04-28] MEDS: SODIUM CHLORIDE 0.9% 1,000 ML IV SCH ×3 (04:00→17:21)
[2021-04-28] MEDS: LEVOTHYROXINE 100 MCG TAB PO SCH (06:18)
[2021-04-28] MEDS: MULTIVITAMINS, THERA 1 EACH TAB PO SCH (07:47)
[2021-04-28] MEDS: CALCIUM CARBONATE 500 MG CHEWABLE PO SCH (07:47)
[2021-04-28] MEDS: PANTOPRAZOLE 40 MG/10 ML VIAL IVP SCH (07:48)
[2021-04-28] MEDS: GABAPENTIN 100 MG CAP PO SCH ×2 (07:48→20:41)
[2021-04-28] MEDS: lisinopriL 20 MG TAB PO SCH (07:48)
[2021-04-28] MEDS: LEVOTHYROXINE 25 MCG TAB PO SCH (07:48)
[2021-04-28] MEDS: ATORVASTATIN 10 MG TAB PO SCH (07:48)
[2021-04-28] MEDS: METOPROLOL TARTRATE 50 MG TAB PO SCH (07:48)
[2021-04-28] MEDS: DAPSONE 25 MG TAB PO SCH (07:55)
[2021-04-28] MEDS: HEPARIN SODIUM,PORCINE/PF 5,000 UNIT/0.5 ML SYRINGE SQ SCH ×2 (08:03→20:41)
[2021-04-28 09:11] LABS: HGB 12.2 g/dL (13.0-17.0); MCH 30.3 pg (27.0-32.0); Mean Platelet Volume 9.8 fL (9.5-12.2); Platelet Count 262 X 10*3/uL (140-440); RBC 4.02 X 10*6/uL (4.40-5.60); RDW 14.9 % (11.5-14.5)
--- NOTE | 2021-04-28 11:30 | P.PN ---
Subjective Progress Note Date: 04/28/21 No new complaints. ERCP pending today. Objective - Vital Signs Vital signs: Vital Signs Temp 97.9 F 04/28/21 07:00 Pulse 64 04/28/21 07:00 Resp 19 04/28/21 07:00 BP 143/64 04/28/21 07:00 Pulse Ox 95 04/28/21 07:00 Intake & Output 04/27/21 04/28/21 04/28/21 18:59 06:59 18:59 Intake Total 200 Balance 200 Weight 127.006 kg Intake: Oral 200 Other: Voiding Method Toilet Toilet # Voids 2 - Exam Gen: awake, alert HEENT: normocephalic, atraumatic, good hearing acuity, moist mucous membranes Resp: good air exchange, breathing comfortably with no accessory muscle use CVS: good distal perfusion x 4, GI: soft, right upper quadrant tenderness : no SPT, no CVAT, chavarria catheter not present MSK: no pitting edema, no clubbing Neuro: non-focal, moving all extremities Psych: cooperative, euthymic mood - Labs CBC & Chem 7: 04/28/21 04:09 04/27/21 08:40 Labs: Abnormal Lab Results - Last 24 Hours (Table) 04/27/21 04/28/21 Range/Units 14:32 04:09 WBC 4.20 L (4.50-10.00) X 10*3/uL RBC 4.02 L (4.40-5.60) X 10*6/uL Hgb 12.2 L (13.0-17.0) g/dL Hct 37.0 L (39.6-50.0) % RDW 14.9 H (11.5-14.5) % Ur Specific [place] 1.036 H (1.001-1.035) Urine Protein 1+ H (Negative) Urine Bilirubin 1+ H (Negative) Calcium Oxalate Crystal Many H (None) /hpf Hyaline Casts 3 H (0-2) /lpf Urine Mucus Few H (None) /hpf Assessment and Plan Assessment: Acute cholecystitis Choledocholithiasis -Admit to telemetry -GI consult for ERCP -Gen. surgery consult for cholecystectomy -Pain control -Nausea control -Nothing by mouth -Unasyn History of lymphoma Hypertension Hyperlipidemia Hypothyroidism -Home medications reviewed and reconciled Patient is a full code Heparin twice a day for DVT prophylaxis
[2021-04-28] MEDS ORDERED: INDOMETHACIN 50MG SUPPOSITORY RECTAL ONE (12:00)
--- NOTE | 2021-04-28 12:11 | P.PN ---
<Britt Reese - Last Filed: 04/28/21 14:22> Subjective Progress Note Date: 04/28/21 CHIEF COMPLAINT: Abdominal pain HISTORY OF PRESENT ILLNESS: Patient reports that his abdominal pain has improved. He denies any nausea or vomiting. He is scheduled for ERCP today. Afebrile. Labs pending. PHYSICAL EXAM: VITAL SIGNS: Reviewed. GENERAL: Well-developed in no acute distress. HEENT: No sclera icterus. Extraocular movements grossly intact. Moist buccal mucosa. Head is atraumatic, normocephalic. ABDOMEN: Soft. Nondistended. Mild tenderness with palpation of the right upper quadrant NEUROLOGIC: Alert and oriented. Cranial nerves II through XII grossly intact. ASSESSMENT: 1. Acute cholecystitis 2. Choledocholithiasis PLAN: -Patient scheduled for ERCP with GI service -Continue IV fluids -Continue IV antibiotics -Continue pain medication as needed Physician Rn Nicu note has been reviewed by physician. Signing provider agrees with the documented findings, assessment, and plan of care. Objective - Vital Signs Vital signs: Vital Signs Temp 97.9 F 04/28/21 07:00 Pulse 64 04/28/21 07:00 Resp 19 04/28/21 07:00 BP 143/64 04/28/21 07:00 Pulse Ox 95 04/28/21 07:00 Intake & Output 04/27/21 04/28/21 04/28/21 18:59 06:59 18:59 Intake Total 200 Balance 200 Weight 127.006 kg Intake: Oral 200 Other: Voiding Method Toilet Toilet # Voids 2 - Labs CBC & Chem 7: 04/28/21 04:09 04/27/21 08:40 Labs: Abnormal Lab Results - Last 24 Hours (Table) 04/27/21 04/28/21 Range/Units 14:32 04:09 WBC 4.20 L (4.50-10.00) X 10*3/uL RBC 4.02 L (4.40-5.60) X 10*6/uL Hgb 12.2 L (13.0-17.0) g/dL Hct 37.0 L (39.6-50.0) % RDW 14.9 H (11.5-14.5) % Ur Specific [place] 1.036 H (1.001-1.035) Urine Protein 1+ H (Negative) Urine Bilirubin 1+ H (Negative) Calcium Oxalate Crystal Many H (None) /hpf Hyaline Casts 3 H (0-2) /lpf Urine Mucus Few H (None) /hpf <Eriberto Herron - Last Filed: 04/28/21 14:29> Subjective As above. Patient going for ERCP today. Await those findings. Anticipate probable discharge with scheduling of outpatient cholecystectomy by Dr. Silver. Objective - Vital Signs Vital signs: Vital Signs Temp 97.9 F 04/28/21 07:00 Pulse 64 04/28/21 07:00 Resp 19 04/28/21 07:00 BP 143/64 04/28/21 07:00 Pulse Ox 95 04/28/21 07:00 Intake & Output 04/27/21 04/28/21 04/28/21 18:59 06:59 18:59 Intake Total 200 Balance 200 Weight 127.006 kg Intake: Oral 200 Other: Voiding Method Toilet Toilet # Voids 2 2 - Labs CBC & Chem 7: 04/28/21 04:09 04/27/21 08:40 Labs: Abnormal Lab Results - Last 24 Hours (Table) 04/27/21 04/28/21 Range/Units 14:32 04:09 WBC 4.20 L (4.50-10.00) X 10*3/uL RBC 4.02 L (4.40-5.60) X 10*6/uL Hgb 12.2 L (13.0-17.0) g/dL Hct 37.0 L (39.6-50.0) % RDW 14.9 H (11.5-14.5) % Ur Specific [place] 1.036 H (1.001-1.035) Urine Protein 1+ H (Negative) Urine Bilirubin 1+ H (Negative) Calcium Oxalate Crystal Many H (None) /hpf Hyaline Casts 3 H (0-2) /lpf Urine Mucus Few H (None) /hpf
[2021-04-28] MEDS ORDERED: IV FLUID CONTINUATION 1,000 ML IV ONE ×2 (14:07)
[2021-04-28] MEDS ORDERED: MIDAZOLAM 2 MG/2 ML VIAL ONE (14:25)
[2021-04-28] MEDS ORDERED: PROPOFOL 10 MG/ML 20 ML VIAL IV ONE (14:25)
[2021-04-28] MEDS ORDERED: KETAMINE 10 MG/ML 20 ML VIAL ONE (14:25)
[2021-04-28] MEDS ORDERED: LIDOCAINE 1% INJ 10MG/ML (20 ML MDV) ONE (14:25)
[2021-04-28] MEDS ORDERED: IOPAMIDOL-300 50ML BTL MISCELLANE ONE (14:40)
[2021-04-28 14:44] VITALS: RESP 18
--- NOTE | 2021-04-28 14:56 | P.PCN ---
Date of Procedure: 04/28/21 Procedure(s) Performed: Brief history: Patient is a 66-year-old white male scheduled for an ERCP as part of evaluation of abdominal pain and elevated serum transaminases, jaundice for the last [address] of abdomen and pelvis done that showed evidence of gallstones and a small distal common bile duct stone. Procedure performed: ERCP with biliary sphincterotomy and balloon Preoperative diagnoses: Severe epigastric pain, elevated LFTs and jaundice and computed tomography scan showing CBD stone IV sedation per anesthesia: Procedure: After informed consent was obtained from the patient and after the risks benefits and complications including bleeding perforation and pancreatitis explained in detail the patient was brought into the endoscopy unit. The patient was placed in prone position and IV conscious sedation was administered by anesthesia under continuous monitoring. The Olympus side-viewing duodenoscope was then inserted into the mouth and esophagus intubated without any difficulty. The scope was gradually advanced into the stomach and duodenum. The major papilla was identified without any difficulty. Initial cannulation resulted in opacification of the common bile duct that appeared nondilated however there was a small faint filling defect measuring about 2-3 mm in the distal CBD. No biliary ductal dilation noted. Cystic duct was patent. Multiple gallstones were noted. At this time the catheter was exchanged over a guidewire with a biliary sphincterotomy which was advanced into the CBD. Biliary sphincterotomy was performed at 11 o'clock position and was extended to 1 cm. Following this an 8 mm balloon was passed over the guidewire and was gently inflated in the proximal CBD and withdrawn and did not see any stones exiting the ampulla. Occlusion cholangiogram-was performed filling defects were noted. Pancreatic duct was intentionally not cannulated. Patient tolerated the procedure well. Impression: Normal-appearing common bile duct with a small faint filling defect in the distal CBD, status post biliary stent time and balloon sweep but no stones seen exiting the ampulla Pancreatic duct intentionally not cannulated Recommendations: The findings of this examination were discussed with the patient as well as a family. He'll be started on clear liquid diet. Repeat labs in the morning.
--- NOTE | 2021-04-28 16:03 | FL ---
EXAMINATION TYPE: FL ERCP DATE OF EXAM: 04/28/2021 FLUOROSCOPY Fluoroscopy time of 1 minute 12 seconds was used during management of acute cholecystitis. 3 image/s document/s the procedure. The gallbladder appears filled with calculi. Possible choledocholithiasis as well.
[2021-04-28 20:04] LABS: African American GFR (CKD) 89.2 (60.0-200.0); Albumin 3.9 g/dL (3.80-4.90); Albumin/Globulin Ratio 1.5 (1.60-3.17); Anion Gap 11.7 mmol/L (4.00-12.00); Calcium 8.8 mg/dL (8.7-10.3); Carbon Dioxide 23.3 mmol/L (21.6-31.8); Globulin 2.6 g/dL (1.6-3.3); Potassium 4.3 mmol/L (3.5-5.5); Total Bilirubin 1.6 mg/dL (0.2-1.2); Total Protein 6.5 g/dL (6.2-8.2)
[2021-04-28] MEDS: METOPROLOL TARTRATE 25 MG TAB PO SCH (20:41)
[2021-04-28] MEDS ORDERED: LOPERAMIDE 2 MG CAP PO STA (23:44)
[2021-04-29] MEDS: AMPICILLIN-SULBACTAM 3 GM in SODIUM CHLORIDE 0.9% 100 ML IVPB SCH (04:51)
[2021-04-29] MEDS: SODIUM CHLORIDE 0.9% 1,000 ML IV SCH ×2 (04:55→07:32)
[2021-04-29 05:33] LABS: ALT 684 U/L (4-49); AST 220 U/L (17-59); African American GFR (CKD) >90 (>60 ml/min/1.73 sqM); Albumin 3.8 g/dL (3.5-5.0); Albumin/Globulin Ratio 1.5; Alkaline Phosphatase 170 U/L (38-126); Anion Gap 7 mmol/L; Blood Urea Nitrogen 13 mg/dL (9-20); Calcium 9.1 mg/dL (8.4-10.2); Carbon Dioxide 27 mmol/L (22-30); Chloride 107 mmol/L (98-107); Globulin 2.6 g/dL; Glucose 99 mg/dL (74-99); Non-African American GFR(CKD) 87 (>60 ml/min/1.73 sqM); Potassium 4.3 mmol/L (3.5-5.1); Sodium 141 mmol/L (137-145); Total Bilirubin 0.9 mg/dL (0.2-1.3); Total Protein 6.4 g/dL (6.3-8.2)
[2021-04-29] MEDS: lisinopriL 20 MG TAB PO SCH (07:21)
[2021-04-29] MEDS: LEVOTHYROXINE 100 MCG TAB PO SCH (07:21)
[2021-04-29] MEDS: GABAPENTIN 100 MG CAP PO SCH (07:21)
[2021-04-29] MEDS: LEVOTHYROXINE 25 MCG TAB PO SCH (07:21)
[2021-04-29] MEDS: CALCIUM CARBONATE 500 MG CHEWABLE PO SCH (07:21)
[2021-04-29] MEDS: MULTIVITAMINS, THERA 1 EACH TAB PO SCH (07:22)
[2021-04-29] MEDS: DAPSONE 25 MG TAB PO SCH (07:22)
[2021-04-29] MEDS: METOPROLOL TARTRATE 50 MG TAB PO SCH (07:22)
[2021-04-29] MEDS: ATORVASTATIN 10 MG TAB PO SCH (07:22)
[2021-04-29] MEDS: HEPARIN SODIUM,PORCINE/PF 5,000 UNIT/0.5 ML SYRINGE SQ SCH ×2 (07:23→07:33)
[2021-04-29] MEDS: PANTOPRAZOLE 40 MG/10 ML VIAL IVP SCH (07:23)
[2021-04-29 07:51] VITALS: BP 138/72; PULSE 66; TEMP 98
--- NOTE | 2021-04-29 10:45 | P.PN ---
<Britt Reese - Last Filed: 04/29/21 10:38> Subjective Progress Note Date: 04/29/21 CHIEF COMPLAINT: Abdominal pain HISTORY OF PRESENT ILLNESS: Patient is status post ERCP. Patient started on regular diet. He denies any nausea or vomiting. His abdominal pain has resolved. He did have multiple episodes of diarrhea and was given Imodium. He has had no further loose stools since 12 PM. Patient is eager for discharge home. Afebrile. Total bili down to 0.9 LFTs trending downwards PHYSICAL EXAM: VITAL SIGNS: Reviewed. GENERAL: Well-developed in no acute distress. HEENT: No sclera icterus. Extraocular movements grossly intact. Moist buccal mucosa. Head is atraumatic, normocephalic. ABDOMEN: Soft. Nondistended. Nontender NEUROLOGIC: Alert and oriented. Cranial nerves II through XII grossly intact. ASSESSMENT: 1. Acute cholecystitis 2. Choledocholithiasis PLAN: -Patient is stable for discharge from surgical standpoint -Patient will have laparoscopic cholecystectomy outpatient with Dr. Silver Physician Chair Spring Assembler note has been reviewed by physician. Signing provider agrees with the documented findings, assessment, and plan of care. Objective - Vital Signs Vital signs: Vital Signs Temp 98.0 F 04/29/21 07:00 Pulse 66 04/29/21 07:00 Resp 18 04/29/21 07:00 BP 138/72 04/29/21 07:00 Pulse Ox 98 04/29/21 07:00 Intake & Output 04/28/21 04/29/21 04/29/21 18:59 06:59 18:59 Intake Total 837 Balance 837 Intake: IV 600 Oral 237 Other: Voiding Method Toilet # Voids 2 2 - Labs CBC & Chem 7: 04/28/21 04:09 04/29/21 04:17 Labs: Abnormal Lab Results - Last 24 Hours (Table) 04/28/21 04/29/21 Range/Units 04:09 04:17 BUN/Creatinine Ratio 10.00 L (12.00-20.00) Ratio Total Bilirubin 1.6 H (0.2-1.2) mg/dL AST 616 H 220 H (14-35) U/L ALT 1090 H 684 H (10-49) U/L Alkaline Phosphatase 208 H 170 H (41-126) U/L Albumin/Globulin Ratio 1.50 L (1.60-3.17) g/dL <Eriberto Herron - Last Filed: 04/29/21 13:21> Subjective As above. January discharge. Follow-up with Dr. Silver postdischarge to schedule cholecystectomy. Objective - Vital Signs Vital signs: Vital Signs Temp 98.0 F 04/29/21 07:00 Pulse 66 04/29/21 07:00 Resp 18 04/29/21 07:00 BP 138/72 04/29/21 07:00 Pulse Ox 98 04/29/21 07:00 Intake & Output 04/28/21 04/29/21 04/29/21 18:59 06:59 18:59 Intake Total 837 Balance 837 Intake: IV 600 Oral 237 Other: Voiding Method Toilet # Voids 2 2 - Labs CBC & Chem 7: 04/28/21 04:09 04/29/21 04:17 Labs: Abnormal Lab Results - Last 24 Hours (Table) 04/28/21 04/29/21 Range/Units 04:09 04:17 BUN/Creatinine Ratio 10.00 L (12.00-20.00) Ratio Total Bilirubin 1.6 H (0.2-1.2) mg/dL AST 616 H 220 H (14-35) U/L ALT 1090 H 684 H (10-49) U/L Alkaline Phosphatase 208 H 170 H (41-126) U/L Albumin/Globulin Ratio 1.50 L (1.60-3.17) g/dL
--- NOTE | 2021-04-29 11:20 | P.PN ---
Subjective Progress Note Date: 04/29/21 Principal diagnosis: abdominal pain, choledocholithiasis Patient is seen and examined sitting up at the bedside. He tolerated regular diet. He denies any abdominal pain, nausea, or vomiting. Yesterday he underwent an ERCP with findings that included a normal-appearing common bile duct with a small faint filling defect in the distal CBD, status post biliary sphincterectomy and balloon sweep but no stones seen exiting the ampulla. Pancreatic duct intentionally not cannulated. Liver enzymes continued to trend down. Plan is for outpatient cholecystectomy. Objective - Vital Signs Vital signs: Vital Signs Temp 98.0 F 04/29/21 07:00 Pulse 66 04/29/21 07:00 Resp 18 04/29/21 07:00 BP 138/72 04/29/21 07:00 Pulse Ox 98 04/29/21 07:00 Intake & Output 04/28/21 04/29/21 04/29/21 18:59 06:59 18:59 Intake Total 837 Balance 837 Intake: IV 600 Oral 237 Other: Voiding Method Toilet # Voids 2 2 - Exam General appearance: The patient is alert, oriented, appears in no acute distress. HET: Head is normocephalic and atraumatic. Conjunctiva pink. Sclera anicteric. Neck: Supple without lymphadenopathy. Abdomen: Soft, nontender, nondistended with bowel sounds. No guarding or rigidity. Extremities: Normal skin color and turgor. No pedal edema Skin: No rashes, no jaundice Neurological: No focal deficits. Alert and oriented 3. - Labs CBC & Chem 7: 04/28/21 04:09 04/29/21 04:17 Labs: Abnormal Lab Results - Last 24 Hours (Table) 04/28/21 04/28/21 04/29/21 Range/Units 04:09 04:09 04:17 WBC 4.20 L (4.50-10.00) X 10*3/uL RBC 4.02 L (4.40-5.60) X 10*6/uL Hgb 12.2 L (13.0-17.0) g/dL Hct 37.0 L (39.6-50.0) % RDW 14.9 H (11.5-14.5) % BUN/Creatinine Ratio 10.00 L (12.00-20.00) Ratio Total Bilirubin 1.6 H (0.2-1.2) mg/dL AST 616 H 220 H (14-35) U/L ALT 1090 H 684 H (10-49) U/L Alkaline Phosphatase 208 H 170 H (41-126) U/L Albumin/Globulin Ratio 1.50 L (1.60-3.17) g/dL Assessment and Plan (1) Epigastric abdominal pain Narrative/Plan: 58-year-old male who presented to the hospital with severe epigastric pain and lower sternal chest pain that started 2 days ago and was noted to have elevated LFTs and jaundice consistent with gallstones and choledocholithiasis. CT of the abdomen did show evidence of distal common bile duct stone. Serum transaminases are significantly elevated with the CT really Otf of 1.5, or consistent with CBD stones. Patient did undergo ERCP yesterday with findings of a normal-appearing common bile duct with a small faint filling defect in the distal CBD, status post biliary sphincterectomy and balloon sweep but no stone seen exiting the ampulla. Pancreatic duct intentionally not cannulated. Current Visit: Yes Status: Acute Code(s): R10.13 - EPIGASTRIC PAIN SNOMED Code(s): 57563928 (2) Cholelithiasis Current Visit: Yes Status: Acute Code(s): K80.20 - CALCULUS OF GALLBLADDER W/O CHOLECYSTITIS W/O OBSTRUCTION SNOMED Code(s): 003797929 (3) Elevated liver enzymes Current Visit: Yes Status: Acute Code(s): R74.8 - ABNORMAL LEVELS OF OTHER SERUM ENZYMES SNOMED Code(s): 117388132 Plan: 1. Low-fat diet 2. Patient is status post ERCP with no CBD stone extraction 3. Repeat LFTs reviewed, and trending down 4. Surgical services following patient, plan is for outpatient cholecystectomy 5. Patient is cleared for discharge from gastroenterology Thank you for this consultation. Dr. Paco Villanueva I agree with the dictator's note, documented as a scribe by Chloé Delaney.
--- NOTE | 2021-04-29 14:02 | P.DS ---
Providers Date of admission: 04/27/21 03:30 Expected date of discharge: 04/29/21 Attending physician: Crispin Gibbons MD Consults: 04/27/21 11:19 Consult Physician Routine Consulting Provider: Elva Villanueva Consult Reason/Comments: Choledocholithiasis, elevated LFTs Do you want consulting provider notified?: Yes 04/27/21 13:16 Consult Physician Routine Consulting Provider: Lien Mtz Consult Reason/Comments: medical management Do you want consulting provider notified?: Yes 04/28/21 08:53 Consult Physician Routine Consulting Provider: Eriberto Herron Consult Reason/Comments: possible surgical intervention for cholecystitis Do you want consulting provider notified?: Already Contacted Primary care physician: Stated None Hospital Course: Acute cholecystitis Choledocholithiasis Patient admitted with abdominal pain to telemetry. CT scan showed evidence of gallstones with GB wall thickening. RUQ US confirmed these findings. Pt had elevated LFTs in hepatocellular pattern, but also with elevated alk phos, concerning for choledocolithiasis. Gen surgery and GI consulted on this case. Patient underwent an ERCP, which did not demonstrate any residual choledocholithiasis. Patients symptoms improved significantly and he was tolerating PO at time of discharge. Plan is for outpatient cholecystectomy in 1-2 weeks. History of lymphoma Hypertension Hyperlipidemia Hypothyroidism -Home medications reviewed and reconciled, no changes on discharge. Assessment: Gen: awake, alert HEENT: normocephalic, atraumatic, good hearing acuity, moist mucous membranes Resp: good air exchange, breathing comfortably with no accessory muscle use CVS: good distal perfusion x 4, GI: soft, right upper quadrant tenderness : no SPT, no CVAT, chavarria catheter not present MSK: no pitting edema, no clubbing Neuro: non-focal, moving all extremities Psych: cooperative, euthymic mood Patient Condition at Discharge: Good Plan - Discharge Summary New Discharge Prescriptions: New Pantoprazole [Protonix] 40 mg PO -KT #30 tablet. Continue Multivitamins, Thera [Multivitamin (formulary)] 1 tab PO DAILY Dapsone 25 mg PO DAILY Calcium Carbonate [Calcium] 600 mg PO DAILY lisinopriL 40 mg PO DAILY Simvastatin [Zocor] 20 mg PO DAILY Metoprolol Tartrate [Lopressor] 50 mg PO DAILY Levothyroxine Sodium [Synthroid] 200 mcg PO DAILY Levothyroxine Sodium [Synthroid] 25 mcg PO DAILY Gabapentin [Neurontin] 100 mg PO BID Fluticasone Nasal [place] [Flonase Nasal [place]] 2 spr EA NOSTRIL DAILY PRN PRN Reason: Congestion Metoprolol Tartrate [Lopressor] 25 mg PO HS Discharge Medication List Calcium Carbonate [Calcium] 600 mg PO DAILY 01/17/18 [History] Dapsone 25 mg PO DAILY 01/17/18 [History] Multivitamins, Thera [Multivitamin (formulary)] 1 tab PO DAILY 01/17/18 [History] lisinopriL 40 mg PO DAILY 01/17/18 [History] Fluticasone Nasal [place] [Flonase Nasal [place]] 2 spr EA NOSTRIL DAILY PRN 04/27/21 [History] Gabapentin [Neurontin] 100 mg PO BID 04/27/21 [History] Levothyroxine Sodium [Synthroid] 25 mcg PO DAILY 04/27/21 [History] Levothyroxine Sodium [Synthroid] 200 mcg PO DAILY 04/27/21 [History] Metoprolol Tartrate [Lopressor] 25 mg PO HS 04/27/21 [History] Metoprolol Tartrate [Lopressor] 50 mg PO DAILY 04/27/21 [History] Simvastatin [Zocor] 20 mg PO DAILY 04/27/21 [History] Pantoprazole [Protonix] 40 mg PO [id number]-[id number] #30 tablet. 04/29/21 [Rx] Follow up Appointment(s)/Referral(s): None,Stated [Primary Care Provider] - 1 Week Cornell Silver MD [STAFF PHYSICIAN] - 1 Week Patient Instructions/Handouts: Gallstones (DC), Low Fat Diet (DC) Discharge Disposition: HOME SELF-CARE
[2021-04-30] MEDS ORDERED: PANTOPRAZOLE 40 MG TABLET PO SCH (07:30)
== END 2021-04-29 11:50 | disposition home or self-care (01) ==
LOC: EC 23:59 → 1SOBS 04-27 03:30 → 6NMEDSUR 04-27 07:12
PROVIDERS: ADMIT Internal Medicine; ATTEND Internal Medicine
DX: K80.62 Calculus of gallbladder and bile duct with acute cholecystitis without obstruction (principal); E03.9 Hypothyroidism, unspecified; E78.5 Hyperlipidemia, unspecified; I10 Essential (primary) hypertension; Z79.890 Hormone replacement therapy; Z79.899 Other long term (current) drug therapy; Z85.46 Personal history of malignant neoplasm of prostate; Z85.72 Personal history of non-Hodgkin lymphomas; Z85.820 Personal history of malignant melanoma of skin; Z92.3 Personal history of irradiation
CPT/HCPCS: 43260; 96375; 96374; 99285; 93005; 85379; 83880; 80053 ×3; 83690; 83735; 84100; 84484; 85025; 85027; 85610; 85730; 81001; 74330; 71045; 76705; 71275; 74177; G0378 ×3; J2250; J2270; J2001; J0295 ×3; J2704; C9113 ×2; Q9967 ×2; J1644 ×2

== ENCOUNTER → 2021-05-05 | Outpatient (CLI) | payer MEDICARE ==
[2021-05-05 17:36] LABS: African American GFR (CKD) 89.2 (60.0-200.0); Albumin 4.5 g/dL (3.80-4.90); Albumin/Globulin Ratio 1.73 (1.60-3.17); Anion Gap 9.1 mmol/L (4.00-12.00); Calcium 9.6 mg/dL (8.7-10.3); Carbon Dioxide 28.9 mmol/L (21.6-31.8); Globulin 2.6 g/dL (1.6-3.3); Potassium 4.5 mmol/L (3.5-5.5); Total Bilirubin 0.8 mg/dL (0.3-1.2); Total Protein 7.1 g/dL (6.2-8.2)
== END | disposition home or self-care (01) ==
LOC: LABWHC1 09:35
PROVIDERS: ATTEND Surgery
DX: K80.50 Calculus of bile duct without cholangitis or cholecystitis without obstruction (principal)
CPT/HCPCS: 36415; 80053

== ENCOUNTER 2021-05-13 07:27 | Day surgery (SDC) | payer MEDICARE ==
[2021-05-11 10:53] VITALS: BMI 33.5
[~2021-05-13 07:27] MED LIST: ACETAMINOPHEN TAB 500 MG TAB PO PRN; DEXAMETHASONE SOD PHOSPHATE 4 MG/ML 1 ML VIAL IV ONE; HEPARIN SODIUM,PORCINE/PF 5,000 UNIT/0.5 ML SYRINGE SQ PRN; HYDROmorphone 0.5 MG/0.5 ML SYRINGE IVP PRN; LACTATED RINGERS 1,000 ML IV SCH; LIDOCAINE 1% (10MG/ML) FOR IV START INTRADERMA PRN; ONDANSETRON 4 MG/2 ML VIAL IVP ONE; ceFAZolin 3 GM in SODIUM CHLORIDE 0.9% 100 ML IVPB PRN
[2021-05-13] MEDS ORDERED: LACTATED RINGERS 1,000 ML IV ONE ×3 (08:00→11:10)
[2021-05-13] MEDS ORDERED: fentaNYL (PF) 50 MCG/ML 2 ML AMP ONE (09:00)
[2021-05-13] MEDS ORDERED: KETOROLAC 15 MG/ML 1 ML VIAL ONE (09:00)
[2021-05-13] MEDS ORDERED: ROCURONIUM 10 MG/ML (5 ML VIAL) IV ONE (09:00)
[2021-05-13] MEDS ORDERED: PHENYLEPHRINE-0.9% NACL SYG 1,000 MCG/10 ML SYRINGE ONE (09:00)
[2021-05-13] MEDS ORDERED: PROPOFOL 10 MG/ML 20 ML VIAL IV ONE (09:00)
[2021-05-13] MEDS ORDERED: SUCCINYLCHOLINE CHLORIDE 100 MG/5 ML SYR IV ONE (09:00)
[2021-05-13] MEDS ORDERED: LIDOCAINE 1% INJ 10MG/ML (20 ML MDV) ONE (09:00)
[2021-05-13] MEDS ORDERED: GLYCOPYRROLATE 0.2 MG/ML 2 ML VIAL ONE (09:00)
[2021-05-13] MEDS ORDERED: MIDAZOLAM 2 MG/2 ML VIAL ONE (09:00)
[2021-05-13] MEDS ORDERED: NEOSTIGMINE 1 MG/ML 10 ML VIAL ONE (09:00)
[2021-05-13] MEDS ORDERED: BUPIVACAINE (PF) 0.5% 30 ML VIAL SQ ONE ×2 (09:22→09:34)
[2021-05-13 10:25] VITALS: TEMP 97.6
--- NOTE | 2021-05-13 10:25 | P.OP ---
Date of Procedure: 05/13/21 Procedure(s) Performed: PREOPERATIVE DIAGNOSIS: Gallstone pancreatitis POSTOPERATIVE DIAGNOSIS: Same PROCEDURE: Laparoscopic cholecystectomy SURGEON: Germaine EBL: Minimal see anesthesia record ANESTHESIA: Gen. COMPLICATIONS: None OPERATIVE PROCEDURE: The patient was brought and placed on the operating room ta [facility] in the supine position. The patient was placed under general anesthesia at that time. The abdomen was prepped and draped in the usual sterile fashion. A small vertical infraumbilical incision was made. The fascia was grasped with the Han forceps. The fascia was retracted anteriorly. The Veress needle was advanced into the peritoneal cavity. The saline drop test was normal. Insufflation took place up to 15 mmHg. A 5 mm optical trocar was advanced and the peritoneal cavity. 2 additional 5 mm trochars were placed in the right upper quadrant under direct visualization. A 12 mm trocar was advanced into the epigastric incision site. The gallbladder was retracted superiorly and laterally. The peritoneum overlying the infundibulum was bluntly dissected. The patient's cystic duct was visualized. The junction between the cystic duct common and hepatic duct was identified. The critical view of safety was achieved after blunt dissection. The cystic duct was then divided after placement of 3 12 mm clips on the patient's side and one on the specimen side. The cystic artery was identified and clipped as well. A small vessel was seen along the gallbladder fossa and clipped as well. The gallbladder was then removed from the liver bed using electrocautery. The gallbladder was then removed from the epigastric trocar site with an Endo Catch bag. The gallbladder fossa was irrigated with saline. There was no evidence of any bleeding or biliary drainage seen. The fascia at the 12 millimeter site was closed using a Jeevan-Cristiane 0 Vicryl stitch. The trochars were then removed. The skin at all 4 sites was closed using a 4-0 Monocryl stitch. Skin glue was utilized on the incision sites. At the end of this procedure the sponge and needle counts were correct. DISPOSITION: Stable to the recovery room
[2021-05-13 11:09] VITALS: RESP 16
[2021-05-13 11:27] VITALS: BP 111/63; PULSE 61
[2021-05-13] MEDS ORDERED: ACETAMINOPHEN TAB 325 MG TAB PO SCH (12:00)
[2021-05-13] MEDS ORDERED: IBUPROFEN 600 MG TAB PO SCH (13:30)
== END 2021-05-13 11:46 | disposition home or self-care (01) ==
LOC: OR 07:27
PROVIDERS: ATTEND Surgery
DX: K85.10 Biliary acute pancreatitis without necrosis or infection (principal); I10 Essential (primary) hypertension; E78.5 Hyperlipidemia, unspecified; Z85.46 Personal history of malignant neoplasm of prostate; K80.80 Other cholelithiasis without obstruction
CPT/HCPCS: 47562; 88304; J2250; J1100; J2710; J0690; J2405; J2001; J3010; J1885; J2370; J0330; J2704; J1644

== ENCOUNTER 2021-06-27 11:43 | Emergency (ER) | payer MEDICARE ==
[2021-06-27 12:47] VITALS: RESP 18; TEMP 98.4
[2021-06-27] MEDS ORDERED: DIPH,PERTUS(ACELL)TETVAC-LF 0.5 ML VIAL IM ONE (13:04)
--- NOTE | 2021-06-27 13:12 | ED ---
Wound/Laceration HPI - General Chief Complaint: Wound/Laceration Stated Complaint: finger lac/injury Time Seen by Provider: 06/27/21 12:53 Source: patient, RN notes reviewed Mode of arrival: ambulatory Limitations: no limitations - History of Present Illness Initial Comments: Patient is a 66-year-old male presenting with chief complaint of distal first d igit tip laceration. Patient cut tip of finger while using table saw at home and reports pulsatile pain. Patient states pain is manageable 6 out of 10 pain. Patient is otherwise healthy stable vitals and no contributory medical problems. Patient denies any feeling of dizziness or lightheadedness. - Related Data Home Medications Medication Instructions Recorded Confirmed Calcium Carbonate [Calcium] 600 mg PO DAILY 01/17/18 05/13/21 Dapsone 25 mg PO DAILY 01/17/18 05/13/21 Multivitamins, Thera [Multivitamin 1 tab PO DAILY 01/17/18 05/13/21 (formulary)] lisinopriL 40 mg PO QAM 01/17/18 05/13/21 Fluticasone Nasal [place] [Flonase 2 spr EA NOSTRIL DAILY PRN 04/27/21 05/13/21 Nasal [place]] Gabapentin [Neurontin] 100 mg PO BID 04/27/21 05/13/21 Levothyroxine Sodium [Synthroid] 225 mcg PO QAM 04/27/21 05/13/21 Metoprolol Tartrate [Lopressor] 25 mg PO HS 04/27/21 05/13/21 Metoprolol Tartrate [Lopressor] 50 mg PO QAM 04/27/21 05/13/21 Simvastatin [Zocor] 20 mg PO DAILY 04/27/21 05/13/21 Aspirin 81 mg PO DAILY 05/11/21 05/13/21 Previous Rx's Medication Instructions Recorded oxyCODONE HCL [OxyIR] 5 mg PO Q6H PRN 3 Days #6 tab 05/13/21 Allergies Allergy/AdvReac Type Severity Reaction Status Date / Time gluten Allergy "big red Verified 06/27/21 12:44 blisters" Review of Systems ROS Statement: Those systems with pertinent positive or pertinent negative responses have been documented in the HPI. ROS Other: All systems not noted in ROS Statement are negative. Past Medical History Past Medical History: Cancer, Hyperlipidemia, Hypertension Additional Past Medical History / Comment(s): gallstones, hx prostate(radiation received 2000), lymphoma-behind eye(received radiation), thyroid and melanoma cancer- History of Any Multi-Drug Resistant Organisms: None Reported Past Surgical History: Cholecystectomy, Tonsillectomy Additional Past Surgical History / Comment(s): melanoma and lymph node removal,thyroidectomy Past Anesthesia/Blood Transfusion Reactions: No Reported Reaction Past Psychological History: No Psychological Hx Reported Smoking Status: Never smoker Past Alcohol Use History: None Reported Past Drug Use History: None Reported - Past Family History Father Family Medical History: AICD/Pacemaker Additional Family Medical History / Comment(s): passed at 59 from Heart related issuses Mother Family Medical History: Cancer Additional Family Medical History / Comment(s): melanoma- at age 90 General Exam Limitations: no limitations General appearance: alert, in no apparent distress Head exam: Present: atraumatic, normocephalic, normal inspection Eye exam: Present: normal appearance, PERRL, EOMI. Absent: scleral icterus, conjunctival injection, periorbital swelling Respiratory exam: Present: normal lung sounds bilaterally. Absent: respiratory distress, wheezes, rales, rhonchi, stridor Cardiovascular Exam: Present: regular rate, normal rhythm, normal heart sounds. Absent: systolic murmur, diastolic murmur, rubs, gallop, clicks Extremities exam: Present: normal inspection, full ROM, normal capillary refill. Absent: tenderness, pedal edema, joint swelling, calf tenderness Right General: Present: laceration (Right first digit) Back exam: Present: normal inspection Neurological exam: Present: alert, oriented X3, CN II-XII intact Psychiatric exam: Present: normal affect, normal mood Skin exam: Present: warm, dry, intact, normal color. Absent: rash Course Vital Signs 06/27/21 12:44 Temperature 98.4 F Pulse Rate 64 Respiratory 18 Rate Blood Pressure 135/67 O2 Sat by Pulse 95 Oximetry Medical Decision Making - Medical Decision Making Distal first digit laceration/skin avulsion- Gelfoam with bandage wrap, instructed on signs of infection to watch for. Dtap shot for unknown last dose of tetanus. Return parameters were discussed. X-ray is unremarkable. There is no closure needed. - Differential Diagnosis thumb lacteraction Disposition Clinical Impression: Laceration of left thumb, Avulsion of skin of left thumb, Laceration Narrative: Please return to the Emergency Department if symptoms worsen or any other concerns. Disposition: HOME SELF-CARE Condition: Stable Instructions (If sedation given, give patient instructions): Skin Avulsion (ED) Additional Instructions: Please return to the Emergency Department if symptoms worsen or any other concerns. Is patient prescribed a controlled substance at d/c from ED?: No Referrals: Rudi Patterson MD [Primary Care Provider] - 1-2 days
[2021-06-27] MEDS ORDERED: GELATIN SPONGE,ABSORB (SMALL) 1 EACH SPONGE TOPICAL STA (13:17)
[2021-06-27 14:20] VITALS: BP 131/73; PULSE 63
--- NOTE | 2021-06-27 14:36 | XR ---
EXAMINATION TYPE: XR finger LT DATE OF EXAM: 06/27/2021 COMPARISON: None HISTORY: Laceration with saw distal thumb TECHNIQUE: 3 view left thumb FINDINGS: No acute fractures or dislocations are evident. There is some subtle soft tissue injury at the distal pad of the thumb. No radiopaque foreign bodies are evident. No adjacent osseous abnormalit y is evident. Note is made of a posterior spur at the proximal portion distal phalanx dorsally. IMPRESSION: 1. Soft tissue injury distal thumb. 2. No acute osseous abnormality. 3. No radiopaque foreign body.
== END 2021-06-27 14:19 | disposition home or self-care (01) ==
LOC: EC 11:43
DX: S61.012A Laceration without foreign body of left thumb without damage to nail, initial encounter (principal); S61.002A Unspecified open wound of left thumb without damage to nail, initial encounter; W26.0XXA Contact with knife, initial encounter; Y92.009 Unspecified place in unspecified non-institutional (private) residence as the place of occurrence of the external cause; E78.5 Hyperlipidemia, unspecified; I10 Essential (primary) hypertension; Z79.899 Other long term (current) drug therapy
CPT/HCPCS: 90471; 90715; 99283

== ENCOUNTER → 2021-12-20 | Outpatient (CLI) | payer MEDICARE ==
--- NOTE | 2021-12-20 15:36 | CT ---
EXAMINATION TYPE: CT soft tissue neck w con DATE OF EXAM: 12/20/2021 2:41 PM COMPARISON: CT dated 07/12/2020 HISTORY: swelling to right side and posterior aspects of neck CT DLP: 628.5 mGycm Automated exposure control for dose reduction was used. CONTRAST: CT scan of the neck is performed following with IV Contrast, patient injected with 100 mL of Isovue 3 00. Axial images are obtained, coronal and sagittal reformatted images are reviewed. FINDINGS: Unremarkable nasopharynx, oropharynx, hypopharynx, larynx and visualized portion of the trachea and e sophagus. The previous report described previous thyroidectomy. Fatty infiltration of the right parot id gland, otherwise unremarkable parotid glands. Slightly atrophic submandibular salivary glands. Scattered arterial atherosclerotic calcifications. Patent major neck vessels. No pathologically enlar ged lymph nodes in the neck. Polyp/retention cyst within the left frontal sinus compartment with muco domonique thickening of the ethmoid air cells. Clear mastoid air cells. Mucosal thickening of the maxillary sinuses. Marked degenerative changes at C5-6 and C6-7 levels. Skin thickening of the posterior aspect of the neck with subcutaneous density measuring 12 mm seen al most in the midline posteriorly (image #[id number], series 3). This could represent a sebaceous cyst or other subcutaneous lesion, please correlate clinically. No encroachment on the underlying muscles. IMPRESSION: Nonspecific subcutaneous density at the posterior aspect of the neck as described above, nonspecific and likely benign. Please correlate clinically. No definite lesion or suspicious lymphadenopathy seen in the neck. Incidental findings as described hadley breaux.
== END | disposition home or self-care (01) ==
LOC: RADCTMAIN 13:28
PROVIDERS: ATTEND Otolaryngology
DX: J02.9 Acute pharyngitis, unspecified (principal); R49.0 Dysphonia
CPT/HCPCS: 82565; 84520; 70491; 36415; Q9967

== ENCOUNTER → 2022-02-10 | Outpatient (CLI) | payer MEDICARE ==
--- NOTE | 2022-02-10 13:20 | CT ---
CT orbits with contrast. HISTORY: Facial pressure. COMPARISON: CT facial bones dated 07/12/2020. TECHNIQUE: Multiple axial images are obtained through the orbits and paranasal sinuses following the uneventful administration nonionic IV contrast material. Coronal and sagittal reconstructions were generated and reviewed. FINDINGS: The globes are symmetric in size and intact. There is no intraconal or extraconal mass the extraocular muscles are normal and symmetric bilaterall y. There are scattered mucous retention cysts or polyps in the maxillary sinuses and left frontal sinus with mucosal thickening in the ethmoid air cells. These findings are stable compared to previous. The osseous structures of the facial bones are intact without bone destruction or sclerosis. The mastoid air cells and middle ear cavities are well aerated Within the visualized portions soft tissues and neck there is no mass or adenopathy. The carotid james sonia within the jugular veins within the neck are normal. Compared to the prior study, there is been no interval change. IMPRESSION: 1. No significant abnormality within the orbits. 2. No abnormality of the facial bones. 3. Stable moderate chronic inflammatory changes in the paranasal sinuses.
== END | disposition home or self-care (01) ==
LOC: RADCTMAIN 10:45
PROVIDERS: ATTEND Internal Medicine
DX: J32.9 Chronic sinusitis, unspecified (principal); Z85.79 Personal history of other malignant neoplasms of lymphoid, hematopoietic and related tissues
CPT/HCPCS: 82565; 84520; 70481; 36415; Q9967

== ENCOUNTER 2023-01-09 11:03 | Day surgery (SDC) | payer MEDICARE ==
[2023-01-09 12:59] VITALS: RESP 16; TEMP 98.5
--- NOTE | 2023-01-09 13:31 | US ---
ULTRASOUND GUIDED FNA SOFT TISSUE RIGHT RADIAL NODULE BIOPSY: CLINICAL HISTORY: Right gluteal subcutaneous nodule FINDINGS: Preliminary imaging failed to demonstrate a soft tissue nodule. The patient is to be taken to CAT sca n to determine if they can be seen under CT scan. IMPRESSION: 1. Ultrasound does not demonstrate the nodule in question. Procedure discontinued. Will attempt at bi opsy in CT scan.
[2023-01-09 14:30] VITALS: BP 142/66; PULSE 60
--- NOTE | 2023-01-09 15:04 | CT ---
EXAMINATION TYPE: CT biopsy subcut tissue DATE OF EXAM: 01/09/2023 COMPARISON: None HISTORY: Right gluteal subcutaneous lesion CT DLP: 4955 mGycm The procedure is discussed with the patient, the risks, complications, benefits and alternatives, wer e discussed and any questions were answered. Informed consent was obtained. The patient is placed p magaly on the CT table, prepped and draped in the usual sterile fashion. Utilizing a 18 gauge core biopsy of 5 passes were made in the subcutaneous right gluteal lesion. Path ology pending. All elements of maximal barrier sterile technique were utilized. The patient remaine d stable throughout the procedure with no immediate postprocedural complication. IMPRESSION: 1. Successful CT guided core biopsy subcutaneous mass right gluteal region
== END 2023-01-09 14:20 | disposition home or self-care (01) ==
LOC: RADPROMAIN 11:03
PROVIDERS: ATTEND Internal Medicine Hematology & Oncology
DX: L90.5 Scar conditions and fibrosis of skin (principal)
CPT/HCPCS: 76536; 77012; 88184; 88185; 88305; 88341; 88342

== ENCOUNTER → 2023-01-09 | Outpatient (CLI) | payer MEDICARE ==
--- NOTE | 2023-01-09 12:09 | XR ---
EXAMINATION TYPE: XR chest 2V DATE OF EXAM: 01/09/2023 11:45 AM COMPARISON: Chest radiographs from 04/27/2021 TECHNIQUE: XR chest 2V Frontal and lateral views of the chest. CLINICAL INDICATION:Male, 67 years old with history of C64.1 MALIGNANT NEOPLASM OF RIGHT KIDNEY, EXCE PT R; FINDINGS: Lungs/Pleura: There is no evidence of pleural effusion, focal consolidation, or pneumothorax. Pulmonary vascularity: Unremarkable. Heart/mediastinum: Cardiomediastinal silhouette is unremarkable. Musculoskeletal: No acute osseous pathology. IMPRESSION: No acute cardiopulmonary disease/process.
== END | disposition home or self-care (01) ==
LOC: RADXRMAIN 11:08
PROVIDERS: ATTEND Urology
DX: C64.1 Malignant neoplasm of right kidney, except renal pelvis (principal)
CPT/HCPCS: 71046

== ENCOUNTER 2023-02-07 12:21 | Inpatient (IN) | payer MEDICARE ==
[2023-02-07] MEDS ORDERED: COLCHICINE 0.6 MG EACH PO STA (12:34)
[2023-02-07] MEDS: SODIUM CHLORIDE 0.9% 1,000 ML IV SCH (12:45)
[2023-02-07 12:46] LABS: Basophils % (A) 0 %; Eosinophils # (A) 0.2 k/uL (0-0.7); Eosinophils % (A) 2 %; HGB 11.4 gm/dL (13.0-17.5); Lymphocytes # (A) 0.7 k/uL (1.0-4.8); Lymphocytes % (A) 7 %; MCH 26.4 pg (25.0-35.0); MCHC 30.9 g/dL (31.0-37.0); MCV 85.6 fL (80.0-100.0); Mean Platelet Volume 7.4; Monocytes # (A) 0.8 k/uL (0-1.0); Monocytes % (A) 8 %; Neutrophils % (A) 80 %; Platelet Count 377 k/uL (150-450); RBC 4.32 m/uL (4.30-5.90); RDW 13.9 % (11.5-15.5)
--- NOTE | 2023-02-07 12:54 | ED ---
General Adult HPI - General Chief complaint: Chest Pain Stated complaint: STEMI Source: EMS, RN notes reviewed, old records reviewed Mode of arrival: EMS Limitations: no limitations - History of Present Illness Initial comments: 57-year-old male presents from the primary care office with ST segment elevation. Patient had presented to the clinic for evaluation of cough and cold symptoms. Patient tested positive both for influenza B and for coronavirus. EKG was ordered secondary to tachycardia which was noted in the office and there was ST segment elevation predominantly in the precordial leads. The patient was brought to the emergency department as a priority one transfer with prehospital dental laboratory manager activation. Upon arrival patient states he feels fine. He has no typ ical chest pain. He is evaluated by cardiology in the emergency department. He was given aspirin nitroglycerin during transport. - Related Data Home Medications Medication Instructions Recorded Confirmed Dapsone 25 mg PO DAILY 01/17/18 02/07/23 lisinopriL 40 mg PO QAM 01/17/18 02/07/23 Levothyroxine Sodium [Synthroid] 200 mcg PO QAM 04/27/21 02/07/23 Metoprolol Tartrate [Lopressor] 50 mg PO BID 04/27/21 02/07/23 Simvastatin [Zocor] 20 mg PO DAILY 04/27/21 02/07/23 Aspirin 81 mg PO DAILY 05/11/21 02/07/23 Docusate [Colace] 100 mg PO DAILY PRN 02/07/23 02/07/23 Erythromycin Base in Ethanol 1 applic TOPICAL BID PRN 02/07/23 02/07/23 [Erygel 2% Gel] HYDROcodone/APAP 7.5-325MG [[place] 1 tab PO Q6HR PRN 02/07/23 02/07/23 7.5-325] Ketorolac [Toradol] 10 mg PO Q6HR PRN 02/07/23 02/07/23 Levothyroxine Sodium [Synthroid] 25 mcg PO DAILY 02/07/23 02/07/23 Tamsulosin HCl [Flomax] 0.4 mg PO DAILY 02/07/23 02/07/23 Allergies Allergy/AdvReac Type Severity Reaction Status Date / Time gluten Allergy "big red Verified 02/07/23 12:53 blisters" Review of Systems ROS Statement: Those systems with pertinent positive or pertinent negative responses have been documented in the HPI. ROS Other: All systems not noted in ROS Statement are negative. Past Medical History Past Medical History: Cancer, Hyperlipidemia, Hypertension, Pneumonia, Renal Disease, Skin Disorder, Thyroid Disorder, Vascular Disorder Additional Past Medical History / Comment(s): gallstones, hx prostate(radiation received 2000), lymphoma-behind eye(received radiation), thyroid and melanoma cancer, renal cancer, lymph edmea rt leg and rt buttocks History of Any Multi-Drug Resistant Organisms: None Reported Past Surgical History: Cholecystectomy, Tonsillectomy Additional Past Surgical History / Comment(s): melanoma and lymph node removal rt leg,thyroidectomy Past Anesthesia/Blood Transfusion Reactions: No Reported Reaction Past Psychological History: No Psychological Hx Reported Smoking Status: Never smoker Past Alcohol Use History: None Reported Past Drug Use History: None Reported - Past Family History Father Family Medical History: AICD/Pacemaker Additional Family Medical History / Comment(s): passed at 59 from Heart related issuses Mother Family Medical History: Cancer Additional Family Medical History / Comment(s): melanoma- at age 90 General Exam Limitations: no limitations General appearance: alert, in no apparent distress Head exam: Present: atraumatic, normocephalic Eye exam: Present: normal appearance, PERRL ENT exam: Present: normal exam Neck exam: Present: normal inspection. Absent: tenderness, meningismus Respiratory exam: Present: normal lung sounds bilaterally. Absent: respiratory distress, wheezes Cardiovascular Exam: Present: regular rate, normal rhythm GI/Abdominal exam: Present: soft. Absent: distended, tenderness, guarding Extremities exam: Present: normal inspection, normal capillary refill Neurological exam: Present: alert, oriented X3, CN II-XII intact. Absent: motor sensory deficit Psychiatric exam: Present: normal affect, normal mood Skin exam: Present: warm, dry, intact Course Vital Signs 02/07/23 02/07/23 12:24 12:32 Temperature 99.1 F Pulse Rate 111 H 105 H Respiratory 20 18 Rate Blood Pressure 110/79 124/81 O2 Sat by Pulse 96 98 Oximetry - Reevaluation(s) Reevaluation #1: 02/07/23 12:[address] Romero, dental laboratory manager activation is canceled. EKG Findings - EKG Comments: EKG Findings:: EKG: Sinus tachycardia rate of 104, MA interval 140, QRS duration 90, QTC [address] segment elevation which is diffuse as well as P-R depression. - EKG Results: EKG: interpreted by ADAND Medical Decision Making - Medical Decision Making Was pt. sent in by a medical professional or institution ([facility], [facility] [employer], urgent care, hospital, or [facility]...) When possible be specific @ Sent by primary care doctor Did you speak to anyone other than the patient for history (EMS, parent, family, police, friend...)? What history was obtained from this source @ Paramedics Did you review nursing and triage notes (agree or disagree)? Why? @ -I reviewed and agree with nursing and triage notes Were old charts reviewed (outside hosp., previous admission, EMS record, old EKG, old radiological studies, urgent care reports/EKG's, [facility] records)? Report findings @ -No old charts were reviewed Differential Diagnosis (chest pain, altered mental status, abdominal pain women, abdominal pain men, vaginal bleeding, weakness, fever, dyspnea, syncope, headache, dizziness, GI bleed, back pain, seizure, CVA, palpatations, mental health, musculoskeletal)? @ -not applicable EKG interpreted by me (3pts min.). @ -As above X-rays interpreted by me (1pt min.). @ Negative for acute findings CT interpreted by me (1pt min.). @ -None done U/S interpreted by me (1pt. min.). @ -None done What testing was considered but not performed or refused? (CT, X-rays, U/S, labs)? Why? @ -None What meds were considered but not given or refused? Why? @ -None Did you discuss the management of the patient with other professionals (professionals i.e. [facility] Brewer, [employer], lab, RT, psych nurse, outreach and education social worker, upper caser, teacher, transit authority police officer, director case management)? Give summary @ Sound, cardiology Was smoking cessation discussed for >3mins.? @ -No Was critical care preformed (if so, how long)? @ Yes Were there social determinants of health that impacted care today? How? (Homelessness, low income, unemployed, alcoholism, drug addiction, transportatio n, low edu. Level, literacy, decrease access to med. care, [place] [facility], rehab)? @ -No Was there de-escalation of care discussed even if they declined (Discuss DNR or withdrawal of care, Hospice)? DNR status @ -No What co-morbidities impacted this encounter? (DM, HTN, Smoking, COPD, CAD, Cancer, CVA, ARF, Chemo, Hep., AIDS, mental health diagnosis, sleep apnea, morbid obesity)? @ Renal cell cancer Was patient admitted / discharged? Hospital course, mention meds given and route, prescriptions, significant lab abnormalities, going to OR and other pertinent info. @ 67-year-old male who presented from the primary care provider with EKG changes suggestive of ST segment elevated NJ. Patient was brought in as a priority 1, there was prehospital activation of the Regulatory Services Consultant. Upon arrival patient is not complaining of any typical pain and he has had several days of cough and cold symptoms. He did test positive for both influenza B and coronavirus in the office. His EKG is reviewed immediately by electrical electronics technician, Dr. Romero, in the emergency department who believes this is related to pericarditis. The patient clinically does not appear to be having an acute NJ. No typical features of chest pain, no diaphoresis, no vomiting in the symptoms of upper respiratory infection and been present for the past several days. He is given colchicine in the emergency department and will be admitted for echo and trended cardiac enzymes. Initial troponin is 0.09 suggestive of some component of myocarditis as well. Case discussed with sound physician group who will admit. Undiagnosed new problem with uncertain prognosis? @ -No Drug Therapy requiring intensive monitoring for toxicity (Heparin, Nitro, Insulin, Cardizem)? @ -No Were any procedures done? @ -No Diagnosis/symptom? @ Pericarditis, influenza B, coronavirus Acute, or Chronic, or Acute on Chronic? @ -Acute Uncomplicated (without systemic symptoms) or Complicated (systemic symptoms)? @ Complicated Side effects of treatment? @ -No Exacerbation, Progression, or Severe Exacerbation? @ -No Poses a threat to life or bodily function? How? (Chest pain, USA, [place], pneumonia, PE, COPD, DKA, ARF, appy, cholecystitis, CVA, Diverticulitis, Homicidal, Suicidal, threat to staff... and all critical care pts) @ Yes, arrhythmia - Lab Data Result diagrams: 02/07/23 12:30 02/07/23 12:30 Lab Results 02/07/23 02/07/23 02/07/23 Range/Units 12:30 12:30 12:30 WBC 10.0 (3.8-10.6) k/uL RBC 4.32 (4.30-5.90) m/uL Hgb 11.4 L (13.0-17.5) gm/dL Hct 37.0 L (39.0-53.0) % MCV 85.6 (80.0-100.0) fL MCH 26.4 (25.0-35.0) pg MCHC 30.9 L (31.0-37.0) g/dL RDW 13.9 (11.5-15.5) % Plt Count 377 (150-450) k/uL MPV 7.4 Neutrophils % 80 % Lymphocytes % 7 % Monocytes % 8 % Eosinophils % 2 % Basophils % 0 % Neutrophils # 8.0 H (1.3-7.7) k/uL Lymphocytes # 0.7 L (1.0-4.8) k/uL Monocytes # 0.8 (0-1.0) k/uL Eosinophils # 0.2 (0-0.7) k/uL Basophils # 0.0 (0-0.2) k/uL PT 10.8 (9.0-12.0) sec INR 1.0 (<1.2) APTT 24.4 (22.0-30.0) sec Sodium 138 (137-145) mmol/L Potassium 4.0 (3.5-5.1) mmol/L Chloride 100 (98-107) mmol/L Carbon Dioxide 30 (22-30) mmol/L Anion Gap 8 mmol/L BUN 12 (9-20) mg/dL Creatinine 0.85 (0.66-1.25) mg/dL Est GFR (CKD-EPI)AfAm >90 (>60 ml/min/1.73 sqM) Est GFR (CKD-EPI)NonAf 89 (>60 ml/min/1.73 sqM) Glucose 151 H (74-99) mg/dL Calcium 8.8 (8.4-10.2) mg/dL Magnesium 1.9 (1.6-2.3) mg/dL Total Bilirubin 1.2 (0.2-1.3) mg/dL AST 49 (17-59) U/L ALT 61 H (4-49) U/L Alkaline Phosphatase 109 (38-126) U/L Troponin I (0.000-0.034) ng/mL Total Protein 6.8 (6.3-8.2) g/dL Albumin 3.7 (3.5-5.0) g/dL 02/07/23 Range/Units 12:30 WBC (3.8-10.6) k/uL RBC (4.30-5.90) m/uL Hgb (13.0-17.5) gm/dL Hct (39.0-53.0) % MCV (80.0-100.0) fL MCH (25.0-35.0) pg MCHC (31.0-37.0) g/dL RDW (11.5-15.5) % Plt Count (150-450) k/uL MPV Neutrophils % % Lymphocytes % % Monocytes % % Eosinophils % % Basophils % % Neutrophils # (1.3-7.7) k/uL Lymphocytes # (1.0-4.8) k/uL Monocytes # (0-1.0) k/uL Eosinophils # (0-0.7) k/uL Basophils # (0-0.2) k/uL PT (9.0-12.0) sec INR (<1.2) APTT (22.0-30.0) sec Sodium (137-145) mmol/L Potassium (3.5-5.1) mmol/L Chloride (98-107) mmol/L Carbon Dioxide (22-30) mmol/L Anion Gap mmol/L BUN (9-20) mg/dL Creatinine (0.66-1.25) mg/dL Est GFR (CKD-EPI)AfAm (>60 ml/min/1.73 sqM) Est GFR (CKD-EPI)NonAf (>60 ml/min/1.73 sqM) Glucose (74-99) mg/dL Calcium (8.4-10.2) mg/dL Magnesium (1.6-2.3) mg/dL Total Bilirubin (0.2-1.3) mg/dL AST (17-59) U/L ALT (4-49) U/L Alkaline Phosphatase (38-126) U/L Troponin I 0.090 H* (0.000-0.034) ng/mL Total Protein (6.3-8.2) g/dL Albumin (3.5-5.0) g/dL Critical Care Time Critical Care Time: Yes Total Critical Care Time: 35 Disposition Clinical Impression: Elevated troponin, Pericarditis, Influenza, Coronavirus infection Disposition: ADMITTED IP TO THIS [facility] Condition: Stable Is patient prescribed a controlled substance at d/c from ED?: No Referrals: Rudi Patterson MD [Primary Care Provider] - 1-2 days Time of Disposition: 13:48
[2023-02-07 12:55] LABS: ALT 61 U/L (4-49); AST 49 U/L (17-59); African American GFR (CKD) >90 (>60 ml/min/1.73 sqM); Albumin 3.7 g/dL (3.5-5.0); Alkaline Phosphatase 109 U/L (38-126); Anion Gap 8 mmol/L; Blood Urea Nitrogen 12 mg/dL (9-20); Calcium 8.8 mg/dL (8.4-10.2); Carbon Dioxide 30 mmol/L (22-30); Chloride 100 mmol/L (98-107); Glucose 151 mg/dL (74-99); Magnesium 1.9 mg/dL (1.6-2.3); Non-African American GFR(CKD) 89 (>60 ml/min/1.73 sqM); Sodium 138 mmol/L (137-145); Total Bilirubin 1.2 mg/dL (0.2-1.3); Total Protein 6.8 g/dL (6.3-8.2)
[2023-02-07 12:57] LABS: Partial Thromboplastin Time 24.4 sec (22.0-30.0); Prothrombin Time 10.8 sec (9.0-12.0)
--- NOTE | 2023-02-07 13:01 | XR ---
EXAMINATION TYPE: XR chest 1V portable DATE OF EXAM: 02/07/2023 12:57 PM COMPARISON: Chest radiographs from 01/09/2023 TECHNIQUE: XR chest 1V portable Portable AP radiograph of the chest. CLINICAL INDICATION:Male, 67 years old with history of chest pain; FINDINGS: Lungs/Pleura: Low lung volumes are present. There is no evidence of pleural effusion, focal consolida tion, or pneumothorax. Pulmonary vascularity: Unremarkable. Heart/mediastinum: Cardiomediastinal silhouette is unremarkable. Musculoskeletal: No acute osseous pathology. IMPRESSION: Low lung volumes without evidence for acute process.
--- NOTE | 2023-02-07 13:10 | P.CRDCN ---
History of Present Illness Consult date: 02/07/23 History of present illness: History of present illness: This is a 67-year-old male. He states he does not follow with a gas turbine assembler. He has a past medical history significant for right renal cancer, lymphoma, hypertension and hyperlipidemia history of prostate cancer, thyroid cancer, patient states that he was at tertiary care center and was going to have a biopsy of the right kidney but apparently there was some problem due to his history of lymphoma and this was not completed. He states he has not been feeling well since. He does complain of generalized chest pain that goes through to his back. This is worse when he takes a deep breath as well as its improved when he leans forward. He was at his primary care's office underwent testing for Covid and influenza which was positive. There was concern the patient was having a myocardial infarction and patient was brought in by EMS to [facility]. EKG reviewed by Dr. Romero and consistent with endocarditis. Chest x-ray: Low lung volumes without evidence of acute process WBC 10, hemoglobin 0.4, platelet count 377. INR 1. A lateralized renal function normal. Glucose 151. Magnesium 1.9. Liver function tests are normal except for ALT of 61. Home cardiac medications: Aspirin 81 mg daily, levothyroxine, lisinopril 40 mg daily, Lopressor 50 mg twice daily, Zocor 20 mg daily Review Of Systems: At the time of my evaluation: Constitutional: No fever, no chills. No weakness, reports fatigue no lethargy. EENT: No headache. No dizziness. Lungs: No shortness of breath, cough, no sputum production. No wheezing. Cardiovascular: Reports chest pain, no lower extremity edema. No palpitations. No paroxysmal nocturnal dyspnea. No orthopnea. No lightheadedness or di zziness. No syncopal episodes. Abdominal: No abdominal pain. No nausea, vomiting. No diarrhea. No constipation. No bloody or tarry stools. Genitourinary: No dysuria.. No urinary retention. Musculoskeletal: No myalgias. No muscle weakness, no frequent falls. No back pain. No neck pain. Integumentary: No wounds. No rash. No unusual bruising. Neurologic: No aphasia. No facial droop. No change in mentation. No head injury. No headache. Physical examination: Gen: This is a 67-year-old male. He is resting on the ear structure and appears to be in no acute distress. VS: reviewed HEENT: Head is atraumatic, normocephalic. Pupils equal, round. Sclerae is anicteric. NECK: Supple. No JVD. . LUNGS: Clear to auscultation. No wheezes or rhonchi. No intercostal retractions. HEART: Regular rate and rhythm. No murmur. ABDOMEN: Soft No tenderness. EXTREMITIES: No pedal edema. No calf tenderness. NEUROLOGICAL: Patient is awake, alert and oriented x3. Assessment: Covid 19, influenza Viral pericarditis Renal cancer Lymphoma history Hypertension, hyperlipidemia Plan: Patient started on colchicine 1.2 mg followed by 2.6 mg twice daily 10 units patient's home cardiac medications Obtain 2-D echocardiogram and Doppler study to assess cardiac structure and function Further recommendations to follow based upon clinical course Thank you kindly for this consultation. Nurse practitioner note has been reviewed, I agree with documented findings and plan of care. Patient was seen and examined. Past Medical History Past Medical History: Cancer, Hyperlipidemia, Hypertension, Pneumonia, Renal Disease, Skin Disorder, Thyroid Disorder, Vascular Disorder Additional Past Medical History / Comment(s): gallstones, hx prostate(radiation received 2000), lymphoma-behind eye(received radiation), thyroid and melanoma cancer, renal cancer, lymph edmea rt leg and rt buttocks History of Any Multi-Drug Resistant Organisms: None Reported Past Surgical History: Cholecystectomy, Tonsillectomy Additional Past Surgical History / Comment(s): melanoma and lymph node removal rt leg,thyroidectomy Past Anesthesia/Blood Transfusion Reactions: No Reported Reaction Past Psychological History: No Psychological Hx Reported Smoking Status: Never smoker Past Alcohol Use History: None Reported Past Drug Use History: None Reported - Past Family History Father Family Medical History: AICD/Pacemaker Additional Family Medical History / Comment(s): passed at 59 from Heart related issuses Mother Family Medical History: Cancer Additional Family Medical History / Comment(s): melanoma- at age 90 Medications and Allergies Home Medications Medication Instructions Recorded Confirmed Type Dapsone 25 mg PO DAILY 01/17/18 02/07/23 History lisinopriL 40 mg PO QAM 01/17/18 02/07/23 History Levothyroxine Sodium [Synthroid] 200 mcg PO QAM 04/27/21 02/07/23 History Metoprolol Tartrate [Lopressor] 50 mg PO BID 04/27/21 02/07/23 History Simvastatin [Zocor] 20 mg PO DAILY 04/27/21 02/07/23 History Aspirin 81 mg PO DAILY 05/11/21 02/07/23 History Docusate [Colace] 100 mg PO DAILY PRN 02/07/23 02/07/23 History Erythromycin Base in Ethanol 1 applic TOPICAL BID PRN 02/07/23 02/07/23 History [Erygel 2% Gel] HYDROcodone/APAP 7.5-325MG [[place] 1 tab PO Q6HR PRN 02/07/23 02/07/23 History 7.5-325] Ketorolac [Toradol] 10 mg PO Q6HR PRN 02/07/23 02/07/23 History Levothyroxine Sodium [Synthroid] 25 mcg PO DAILY 02/07/23 02/07/23 History Tamsulosin HCl [Flomax] 0.4 mg PO DAILY 02/07/23 02/07/23 History Allergies Allergy/AdvReac Type Severity Reaction Status Date / Time gluten Allergy "big red Verified 02/07/23 12:53 blisters" Physical Exam Vitals: Vital Signs Temp Pulse Resp BP Pulse Ox 02/07/23 12:32 105 H 18 124/81 98 02/07/23 12:24 99.1 F 111 H 20 110/79 96 Intake and Output 02/06/23 02/07/23 02/07/23 22:59 06:59 14:59 Other: Weight 127 kg Results 02/07/23 12:30 02/07/23 12:30 CBC 02/07/23 Range/Units 12:30 WBC 10.0 (3.8-10.6) k/uL RBC 4.32 (4.30-5.90) m/uL Hgb 11.4 L (13.0-17.5) gm/dL Hct 37.0 L (39.0-53.0) % Plt Count 377 (150-450) k/uL Current Medications Generic Name Dose Route Start Last Admin Trade Name Freq PRN Reason Stop Dose Admin Sodium Chloride 1,000 mls @ 75 mls/hr 02/07/23 12:45 02/07/23 12:45 Saline 0.9% IV 75 mls/hr .[id number] Administration Intake and Output 02/06/23 02/07/23 02/07/23 22:59 06:59 14:59 Other: Weight 127 kg Patient Weight 02/08/23 06:59 Weight 127 kg 02/07/23 12:30
[2023-02-07] MEDS ORDERED: NALOXONE 0.4 MG/ML 1 ML VIAL IV PRN (13:43)
[2023-02-07] MEDS ORDERED: ACETAMINOPHEN TAB 325 MG TAB PO PRN (13:43)
--- NOTE | 2023-02-07 14:22 | CA ---
Transthoracic Echo Report Name: Ayo Zuniga Age: 67 Gender: M : 1955 Exam Date: 02/07/2023 13:07 Exam Location: [place] [facility] Ht (in): 76 Wt (lb): 279 Ordering Physician: Aaron Romero MD ([id number]) Attending/Referring Phys: Food Preparation Worker Julee Cisneros, CAROLIN Procedure CPT: Indications: Chest Pain Cardiac Hx: Technical Quality: Fair Contrast 1: Total Dose (mL): Contrast 2: Total Dose (mL): MEASUREMENTS (Male / Female) Normal Values 2D ECHO LV Diastolic Diameter PLAX 5.4 cm 4.2 - 5.9 / 3.9 - 5.3 cm LV Systolic Diameter PLAX 3.7 cm IVS Diastolic Thickness 1.1 cm 0.6 - 1.0 / 0.6 - 0.9 cm LVPW Diastolic Thickness 1.1 cm 0.6 - 1.0 / 0.6 - 0.9 cm LV Relative Wall Thickness 0.4 RV Internal Dim ED PLAX 2.9 cm LA Systolic Diameter LX 3.7 cm 3.0 - 4.0 / 2.7 - 3.8 cm LA Volume 54.0 cm??? 18 - 58 / 22 - 52 cm??? M-MODE Aortic Root Diameter MM 3.5 cm MV E Point Septal Separation 0.7 cm AV Cusp Separation MM 2.0 cm DOPPLER AV Peak Velocity 131.8 cm/s AV Peak Gradient 7.0 mmHg MV Area PHT 3.7 cm??? Mitral E Point Velocity 86.1 cm/s Mitral A Point Velocity 70.2 cm/s Mitral E to A Ratio 1.2 MV Deceleration Time 203.2 ms MV E' Velocity 11.1 cm/s Mitral E to MV E' Ratio 7.8 FINDINGS Left Ventricle Left ventricular ejection fraction is estimated at 55-60 %. Left ventricular cavity size normal. Mildly increased septal wall thickness. Right Ventricle Normal right ventricular size and function. Unable to estimate the right ventricular systolic pressure. Right Atrium Normal right atrial size. Left Atrium Mildly increased left atrial area. Mitral Valve Structurally normal mitral valve. No mitral stenosis, regurgitation or prolapse. Aortic Valve Trileaflet aortic valve. No aortic valve stenosis or regurgitation. Tricuspid Valve Structurally normal tricuspid valve. No tricuspid stenosis, regurgitation or prolapse. Pulmonic Valve Structurally normal pulmonic valve. No pulmonic regurgitation. Pericardium Normal pericardium. No pericardial effusion. Aorta Normal size aortic root and proximal ascending aorta. CONCLUSIONS Left ventricular ejection fraction 55-60% Mildly increased left ventricular wall thickness Mildly dilated left atrium No mitral regurgitation No pericardial effusion Previewed by: Dr. Aurelio Orozco DO (Electronically Signed) Final Date: 07 Feb 2023 14:21
[2023-02-07] MEDS ORDERED: ETODOLAC 400 MG TAB PO PRN (15:28)
[2023-02-07] MEDS ORDERED: [UNRECOGNIZED DRUG - OTHER] TOPICAL PRN (15:28)
[2023-02-07] MEDS ORDERED: HYDROcodone/APAP 7.5-325MG 1 EACH TAB PO PRN (15:28)
--- NOTE | 2023-02-07 15:28 | P.HPIM ---
History of Present Illness H&P Date: 02/07/23 History of Presenting Illness: Patient is a very pleasant 67 male with a past medical history of hypertension, hyperlipidemia, prostate cancer status post radiation in 2000, lymphoma behind by status post radiation, thyroid cancer status post thyroidectomy, renal cancer status post renal mass dissection, lymphedema right lower leg, and melanoma. He is currently undergoing testing for lymphoma and states 1 week ago he was supposed to have a partial nephrectomy but instead underwent removal of a mass on his kidney and awaiting biopsy/pathology results. Today, he initially went to his PCPs office secondary to evaluation of cough/cold like symptoms ac companied by mild chest discomfort. In his PCPs office patient tested positive for both influenza B and Covid infection. An EKG was also done there and PCP noted patient to have ST segment elevation and sent patient to the emergency department via EMS for evaluation. Upon arrival to the emergency department patient initially treated as a STEMI and Acid Remover was activated. Upon arrival patient underwent full evaluation . by ED physician and voice pathologist. Code STEMI was canceled and Acid Remover deactivated as patient was believed to have pericarditis. EKG was completed and reviewed showing sinus tachycardia at [address] elevation in leads 2, V2, and V4 through V6 concerning for pericar ditis upon personal review and interpretation. labs completed and reviewed. CBC showing normocytic normochromic anemia with hemoglobin of 11.4. Coagulation profile normal findings. CMP unremarkable with the exception of mildly elevated ALT is 61. Troponin elevated at 0.090. Discussed presenting complaint, patient history, clinical findings, laboratory analysis, and imaging results with the ED physician in detail. Patient being admitted to the cardiac stepdown unit under our services with consultation to cardiology. Review of systems: Pertinent positives and negatives as discussed in HPI, a complete review of systems was performed and all other systems are negative. Physical exam: Vital signs reviewed and stable. General: Nontoxic, no distress and appears stated age. Derm: Skin warm and dry, normal coloration for ethnicity. Head: Atraumatic, normocephalic and symmetric. Eyes: EOMs intact, no lid lag, and anicteric sclera Mouth: no lip lesions, mucus membranes moist Cardiovascular: regular rate and rhythm with normal S1S2, no murmur, positive posterior tibial pulses bilaterally, and cap refill < 2 seconds. Lungs: Respirations even, regular, and unlabored on room air. Lungs CTA bila terally, no rhonchi, no rales, no wheezing, and no accessory muscle usage. Abdominal: soft, nontender to palpation, no guarding, no appreciable organomegaly Ext: ROM intact. No gross muscle atrophy, 1+ bilateral lower extremity edema, no contractures Neuro: Speech clear, face symmetrical and CN II-XII grossly intact with no noted focal neuro deficits Psych: Alert and oriented to person, place, time, and situation. Appropriate and pleasant affect. Assessment and Plan of Care: Elevated troponin Chest pain and shortness of breath, rule out pericarditis Covid infection Influenza B infection Sinus tachycardia Hypertension Hyperlipidemia Lymphoma History of thyroid cancer status post thyroidectomy -Today, pt initially went to his PCPs office secondary to evaluation of cough/cold like symptoms accompanied by mild chest discomfort. In his PCPs office patient tested positive for both influenza B and Covid infection. An EKG was also done there and PCP noted patient to have ST segment elevation and sent patient to the emergency department via EMS for evaluation. Upon arrival to the emergency department patient initially treated as a STEMI and Acid Remover was activated. -Upon arrival to the emergency department patient underwent full evaluation by ED physician and voice pathologist. Code STEMI was canceled and Acid Remover deactivated as patient was believed to have pericarditis. -EKG was completed and reviewed showing sinus tachycardia at [address] elevation in leads 2, V2, and V4 through V6 concerning for pericarditis upon personal review and interpretation. -Labs completed and reviewed. CBC showing normocytic normochromic anemia with hemoglobin of 11.4. Coagulation profile normal findings. CMP unremarkable with the exception of mildly elevated ALT is 61. Troponin elevated at 0.090. -Discussed presenting complaint, patient history, clinical findings, laboratory analysis, and imaging results with the ED physician in detail. -Patient being admitted to the cardiac stepdown unit under our services with consultation to cardiology. -Cardiology evaluated recommending patient continue with colchicine 0.6 mg daily. -Echocardiogram to be completed. -Well's score 10.0, order placed for CT PE to rule out pulmonary emboli. -Patient being started on Tamiflu 75 mg every 12 hours for of influenza B -Patient to be placed in contact plus droplet precautions. -Patient to remain on continuous telemetry monitoring in order placed for repeat morning EKG. -Troponins to be trended. -Home medications reviewed and patient to continue with aspirin 81 mg daily, atorvastatin 10 mg nightly, levothyroxine 225 mg daily, lisinopril 40 mg daily, metoprolol 50 mg twice daily, and Flomax 0.4 mg daily. The patient is admitted with an anticipated greater than 2 midnight stay for evaluation of elevated troponin, pericarditis, Covid infection, and influenza B CODE STATUS: Full code DVT prophylaxis: Lovenox Discussed with: patient, patient's and daughter, ED physician, and RN Anticipated discharge date: clinical course to determine Anticipated discharge place: home Patient was seen independently by Nurse Practitioner. This document was prepared using [employer] dictation software. Please allow for errors in obstetric anaesthetist while rare they do occur. Idris Scott NP rendered care for this patient independently, reviewed the findings and plan as documented in the note above. I did not physically speak with or examine the patient on this date. Past Medical History Past Medical History: Cancer, Hyperlipidemia, Hypertension, Pneumonia, Renal Disease, Skin Disorder, Thyroid Disorder, Vascular Disorder Additional Past Medical History / Comment(s): gallstones, hx prostate(radiation received 2000), lymphoma-behind eye(received radiation), thyroid and melanoma cancer, renal cancer, lymph edmea rt leg and rt buttocks History of Any Multi-Drug Resistant Organisms: None Reported Past Surgical History: Cholecystectomy, Tonsillectomy Additional Past Surgical History / Comment(s): melanoma and lymph node removal rt leg,thyroidectomy Past Anesthesia/Blood Transfusion Reactions: No Reported Reaction Past Psychological History: No Psychological Hx Reported Smoking Status: Never smoker Past Alcohol Use History: None Reported Past Drug Use History: None Reported - Past Family History Father Family Medical History: AICD/Pacemaker Additional Family Medical History / Comment(s): passed at 59 from Heart related issuses Mother Family Medical History: Cancer Additional Family Medical History / Comment(s): melanoma- at age 90 Medications and Allergies Home Medications Medication Instructions Recorded Confirmed Type Dapsone 25 mg PO DAILY 01/17/18 02/07/23 History lisinopriL 40 mg PO QAM 01/17/18 02/07/23 History Levothyroxine Sodium [Synthroid] 200 mcg PO QAM 04/27/21 02/07/23 History Metoprolol Tartrate [Lopressor] 50 mg PO BID 04/27/21 02/07/23 History Simvastatin [Zocor] 20 mg PO DAILY 04/27/21 02/07/23 History Aspirin 81 mg PO DAILY 05/11/21 02/07/23 History Docusate [Colace] 100 mg PO DAILY PRN 02/07/23 02/07/23 History Erythromycin Base in Ethanol 1 applic TOPICAL BID PRN 02/07/23 02/07/23 History [Erygel 2% Gel] HYDROcodone/APAP 7.5-325MG [[place] 1 tab PO Q6HR PRN 02/07/23 02/07/23 History 7.5-325] Ketorolac [Toradol] 10 mg PO Q6HR PRN 02/07/23 02/07/23 History Levothyroxine Sodium [Synthroid] 25 mcg PO DAILY 02/07/23 02/07/23 History Tamsulosin HCl [Flomax] 0.4 mg PO DAILY 02/07/23 02/07/23 History Colchicine 0.6 mg PO DAILY 30 Days #30 capsule 02/08/23 Rx Indomethacin 25 mg PO BID-W/MEALS #14 capsule 02/08/23 Rx Oseltamivir [Tamiflu] 75 mg PO Q12HR 4 Days #8 cap 02/08/23 Rx Allergies Allergy/AdvReac Type Severity Reaction Status Date / Time gluten Allergy "big red Verified 02/07/23 12:53 blisters" Physical Exam Vitals: Vital Signs Temp Pulse Resp BP Pulse Ox 02/07/23 14:00 94 18 92/59 94 L 02/07/23 12:32 105 H 18 124/81 98 02/07/23 12:24 99.1 F 111 H 20 110/79 96 Intake and Output 02/07/23 02/07/23 02/07/23 06:59 14:59 22:59 Other: Weight 127 kg Results CBC & Chem 7: 02/08/23 09:04 02/08/23 09:04 Labs: Abnormal Lab Results - Last 24 Hours (Table) 02/07/23 02/07/23 02/07/23 Range/Units 12:30 12:30 12:30 Hgb 11.4 L (13.0-17.5) gm/dL Hct 37.0 L (39.0-53.0) % MCHC 30.9 L (31.0-37.0) g/dL Neutrophils # 8.0 H (1.3-7.7) k/uL Lymphocytes # 0.7 L (1.0-4.8) k/uL Glucose 151 H (74-99) mg/dL ALT 61 H (4-49) U/L Troponin I 0.090 H* (0.000-0.034) ng/mL
--- NOTE | 2023-02-07 16:02 | CT ---
CT CHEST FOR PULMONARY EMBOLISM. EXAMINATION TYPE: CT chest angio for PE DATE OF EXAM: 02/07/2023 INDICATION: SOB, +covid, +flu CT DLP: 777.6 mGycm, Automated exposure control for dose reduction was used. CONTRAST: Patient injected with 100 mL of Isovue 370. COMPARISON: None TECHNIQUE: CT of the chest is performed on a spiral scan at 2 mm thick sections. Study is performed with intravenous contrast timed for evaluation for pulmonary embolism. This will limit additional po rtions of the evaluation. 3-D MIP images reconstructed by the technologist are reviewed on the compu ter in the coronal and sagittal planes. FINDINGS: No persistent filling defects are evident to suggest an acute pulmonary embolism. No mediastinal or hilar adenopathy enlarged by CT criteria is evident. The ascending aorta diameter at the level of the main pulmonary artery is 3.4 cm. The main pulmonary artery diameter at the bifur cation is 2.9 cm. Small area of pneumonitis in the posterior right apex. There is a 0.4 cm nodularity within the transfer car operator drier ior peripheral right midlung. Series 406 image 60. There is increased lung markings in the left lung base. Correlate for subsegmental atelectasis. Early pneumonia could be considered. Consider atypical pneumonia. Limited CT section through the upper abdomen are unremarkable. IMPRESSIONS: 1. No acute pulmonary embolism. 2. Infiltrate in the left lower lobe. Correlate for atelectasis or pneumonia. Atypical pneumonia is w ithin the differential.
[2023-02-07] MEDS: METOPROLOL TARTRATE 50 MG TAB PO SCH (21:55)
[2023-02-07] MEDS ORDERED: NITROGLYCERIN SL TABS 0.4 MG TAB SUBLINGUAL ONE (22:36)
[2023-02-07] MEDS: MORPHINE SULFATE 4 MG/ML SYRINGE IVP PRN (23:04)
[2023-02-07] MEDS: OSELTAMIVIR 75 MG CAP PO SCH (23:07)
[2023-02-08] MEDS: SODIUM CHLORIDE 0.9% 1,000 ML IV SCH ×2 (02:44→14:50)
[2023-02-08] MEDS: MORPHINE SULFATE 4 MG/ML SYRINGE IVP PRN (03:47)
[2023-02-08] MEDS ORDERED: LEVOTHYROXINE 25 MCG TAB PO SCH (06:30)
[2023-02-08] MEDS ORDERED: LEVOTHYROXINE 100 MCG TAB PO SCH (06:30)
[2023-02-08] MEDS: METOPROLOL TARTRATE 50 MG TAB PO SCH (08:58)
[2023-02-08] MEDS: OSELTAMIVIR 75 MG CAP PO SCH (08:58)
[2023-02-08] MEDS ORDERED: COLCHICINE 0.6 MG EACH PO SCH (09:00)
[2023-02-08] MEDS ORDERED: lisinopriL 20 MG TAB PO SCH (09:00)
[2023-02-08] MEDS ORDERED: ASPIRIN 81 MG PO SCH (09:00)
[2023-02-08] MEDS ORDERED: ATORVASTATIN 10 MG TAB PO SCH (09:00)
[2023-02-08] MEDS ORDERED: ENOXAPARIN 40 MG/0.4 ML SYRINGE SQ SCH (09:00)
[2023-02-08] MEDS ORDERED: TAMSULOSIN 0.4 MG CAP.ER.24H PO SCH (09:00)
[2023-02-08 09:25] LABS: HCT 37.4 % (39.0-53.0); HGB 11.1 gm/dL (13.0-17.5); Hypochromasia Marked; MCH 26.2 pg (25.0-35.0); MCHC 29.8 g/dL (31.0-37.0); MCV 87.8 fL (80.0-100.0); Mean Platelet Volume 7.6; Platelet Count 411 k/uL (150-450); RBC 4.26 m/uL (4.30-5.90); RDW 13.9 % (11.5-15.5)
[2023-02-08 09:41] LABS: Albumin 3.6 g/dL (3.5-5.0); Magnesium 2.1 mg/dL (1.6-2.3); Potassium 4.6 mmol/L (3.5-5.1); Total Bilirubin 1.5 mg/dL (0.2-1.3); Total Protein 6.7 g/dL (6.3-8.2)
[2023-02-08 11:00] VITALS: RESP 18
[2023-02-08] MEDS ORDERED: DOCUSATE 100 MG CAP PO SCH (11:15)
--- NOTE | 2023-02-08 11:26 | P.PN ---
Subjective Progress Note Date: 02/08/23 History of present illness: This is a 67-year-old male. He states he does not follow with a car diologist. He has a past medical history significant for right renal cancer, lymphoma, hypertension and hyperlipidemia history of prostate cancer, thyroid cancer, patient states that he was at tertiary care center and was going to have a biopsy of the right kidney but apparently there was some problem due to his history of lymphoma and this was not completed. He states he has not been feeling well since. He does complain of generalized chest pain that goes through to his back. This is worse when he takes a deep breath as well as its improved when he leans forward. He was at his primary care's office underwent testing for Covid and influenza which was positive. There was concern the pat ient was having a myocardial infarction and patient was brought in by EMS to [facility]. EKG reviewed by Dr. Romero and consistent with endocarditis. Chest x-ray: Low lung volumes without evidence of acute process WBC 10, hemoglobin 0.4, platelet count 377. INR 1. A lateralized renal function normal. Glucose 151. Magnesium 1.9. Liver function tests are normal except for ALT of 61. Home cardiac medications: Aspirin 81 mg daily, levothyroxine, lisinopril 40 mg daily, Lopressor 50 mg twice daily, Zocor 20 mg daily 02/08 Patient is seen in follow-up on the cardiac stepdown unit. Patient states he is feeling better and his pain is improved when he leans forward. Patient is sitting in a recliner at this time. No shortness of breath. No lightheadedness or dizziness. Echocardiogram reveals EF of 55-60%, mildly increased left ventricular wall thickness, mildly dilated left atrium, no mitral regurgitation, no pericardial effusion. Physical examination: Gen: This is a 67-year-old male. He appears to be in no acute distress. VS: reviewed HEENT: Head is atraumatic, normocephalic. Pupils equal, round. Sclerae is anicteric. NECK: Supple. No JVD. . LUNGS: Clear to auscultation. No wheezes or rhonchi. No intercostal retractions. HEART: Regular rate and rhythm. No murmur. EXTREMITIES: No pedal edema. No calf tenderness. NEUROLOGICAL: Patient is awake, alert and oriented x3. Assessment: Covid 19, influenza Viral pericarditis Renal cancer Lymphoma history Hypertension, hyperlipidemia Plan: Continue patient on coca seen 0.6 mg daily for 2 weeks Start Indocin 25 mg twice daily for 1 week Patient is cleared from cardiology for discharge home today. Cardiology will follow on an as-needed basis. Patient may follow-up in the office with Dr. Daugherty. Nurse practitioner note has been reviewed, I agree with documented findings and plan of care. Patient was seen and examined. Objective - Vital Signs Vital signs: Vital Signs Temp 98.7 F 02/08/23 04:00 Pulse 88 02/08/23 04:00 Resp 20 02/08/23 04:00 BP 128/76 02/08/23 04:00 Pulse Ox 95 02/08/23 04:00 FiO2 Intake & Output 02/07/23 02/08/23 02/08/23 18:59 06:59 18:59 Weight 127 kg Other: Voiding Method Toilet # Voids 1 - Labs CBC & Chem 7: 02/08/23 09:04 02/08/23 09:04 Labs: Abnormal Lab Results - Last 24 Hours (Table) 02/07/23 02/07/23 02/07/23 Range/Units 12:30 12:30 12:30 WBC (3.8-10.6) k/uL RBC (4.30-5.90) m/uL Hgb 11.4 L (13.0-17.5) gm/dL Hct 37.0 L (39.0-53.0) % MCHC 30.9 L (31.0-37.0) g/dL Neutrophils # 8.0 H (1.3-7.7) k/uL Lymphocytes # 0.7 L (1.0-4.8) k/uL BUN (9-20) mg/dL Glucose 151 H (74-99) mg/dL Total Bilirubin (0.2-1.3) mg/dL ALT 61 H (4-49) U/L Troponin I 0.090 H* (0.000-0.034) ng/mL 02/07/23 02/07/23 02/08/23 Range/Units 15:20 17:36 09:04 WBC 12.0 H (3.8-10.6) k/uL RBC 4.26 L (4.30-5.90) m/uL Hgb 11.1 L (13.0-17.5) gm/dL Hct 37.4 L (39.0-53.0) % MCHC 29.8 L (31.0-37.0) g/dL Neutrophils # (1.3-7.7) k/uL Lymphocytes # (1.0-4.8) k/uL BUN (9-20) mg/dL Glucose (74-99) mg/dL Total Bilirubin (0.2-1.3) mg/dL ALT (4-49) U/L Troponin I 0.100 H* 0.063 H* (0.000-0.034) ng/mL 02/08/23 Range/Units 09:04 WBC (3.8-10.6) k/uL RBC (4.30-5.90) m/uL Hgb (13.0-17.5) gm/dL Hct (39.0-53.0) % MCHC (31.0-37.0) g/dL Neutrophils # (1.3-7.7) k/uL Lymphocytes # (1.0-4.8) k/uL BUN 21 H (9-20) mg/dL Glucose 139 H (74-99) mg/dL Total Bilirubin 1.5 H (0.2-1.3) mg/dL ALT 69 H (4-49) U/L Troponin I (0.000-0.034) ng/mL
--- NOTE | 2023-02-08 12:27 | P.DS ---
Providers Date of admission: 02/07/23 13:44 Expected date of discharge: 02/08/23 Attending physician: Dameon Olmos MD Consults: 02/07/23 13:43 Consult Physician Stat Consulting Provider: Aaron Romero Consult Reason/Comments: ST- segment elevation Do you want consulting provider notified?: Already Contacted Primary care physician: Rudi Patterson MD Hospital Course: Discharge Diagnosis: Elevated troponins Viral pericarditis Covid infection Influenza B infection Sinus tachycardia Hypertension Hyperlipidemia Lymphoma History of thyroid cancer status post thyroidectomy Hospital Course: Patient is a very pleasant 67 male with a past medical history of hypertension, hyperlipidemia, prostate cancer status post radiation in 2000, lymphoma behind by status post radiation, thyroid cancer status post thyroidectomy, renal cancer status post renal mass dissection, lymphedema right lower leg, and melanoma. He is currently undergoing testing for lymphoma and states 1 week ago he was supposed to have a partial nephrectomy but instead underwent removal of a mass on his kidney and awaiting biopsy/pathology results. Today, he initially went to his PCPs office secondary to evaluation of cough/cold like symptoms accompanied by mild chest discomfort. In his PCPs office patient tested positive for both influenza B and Covid infection. An EKG was also done there and PCP noted patient to have ST segment elevation and sent patient to the emergency department via EMS for evaluation. Upon arrival to the emergency department patient initially treated as a STEMI and Residential Supervisor was activated. Upon arrival patient underwent full evaluation . by ED physician and training program developer. Code STEMI was canceled and Residential Supervisor deactivated as patient was believed to have pericarditis. EKG was completed and reviewed showing sinus tachycardia at [address] elevation in leads 2, V2, and V4 through V6 concerning for pericarditis upon personal review and interpretation. labs completed and reviewed. CBC showing normocytic normochromic anemia with hemoglobin of 11.4. Coagulation profile normal findings. CMP unremarkable with the exception of mildly elevated ALT is 61. Troponin elevated at 0.090. Discussed presenting complaint, patient history, clinical findings, laboratory analysis, and imaging results with the ED physician in detail. Patient was admitted to the cardiac stepdown unit under our services with consultation to cardiology. Troponins were trended overnight resulting in 0.090, 0.100, and 0.063. Echocardiogram was completed revealing preserved EF of 55-60% with no evidence of pericardial effusion. CTA was completed and negative for pulmonary emboli. Morning labs repeated and stable with CBC showing mild leukocytosis with WBC count of 12.0 and normocytic anemia with hemoglobin of 11.1. Patient was evaluated by cardiology and cleared from a cardiac perspective for discharge home recommending patient follow-up outpatient in their office in one week. Patient was very adamant about being discharged and per his request discharge orders placed. Patient discharged home on indomethacin, colchicine, and Tamiflu. Patient strongly encouraged to follow up outpatient as scheduled with his PCP as well as training program developer in 1 week. Physical exam: Vital signs reviewed and stable. General: Nontoxic, no distress and appears stated age. Derm: Skin warm and dry, normal coloration for ethnicity. Head: Atraumatic, normocephalic and symmetric. Eyes: EOMs intact, no lid lag, and anicteric sclera Mouth: no lip lesions, mucus membranes moist Cardiovascular: regular rate and rhythm with normal S1S2, no murmur, positive posterior tibial pulses bilaterally, and cap refill < 2 seconds. Lungs: Respirations even, regular, and unlabored on room air. Lungs CTA bilaterally, no rhonchi, no rales, no wheezing, and no accessory muscle usage. Abdominal: soft, nontender to palpation, no guarding, no appreciable organomegaly Ext: ROM intact. No gross muscle atrophy, 1+ bilateral lower extremity edema, no contractures Neuro: Speech clear, face symmetrical and CN II-XII grossly intact with no noted focal neuro deficits Psych: Alert and oriented to person, place, time, and situation. Appropriate and pleasant affect. A total of 31 minutes of time were spent preparing this complex discharge summary. Pt was discharged on 02/08/23 12:19 PM Patient was seen independently by Nurse Practitioner. This document was prepared using [employer] dictation software. Please allow for errors in hydropulper operator while rare they do occur. Patient Condition at Discharge: Stable Plan - Discharge Summary Discharge Rx Participant: Yes New Discharge Prescriptions: New Oseltamivir [Tamiflu] 75 mg PO Q12HR 4 Days #8 cap Indomethacin 25 mg PO BID-W/MEALS #14 capsule Colchicine 0.6 mg PO DAILY 30 Days #30 capsule Continue Dapsone 25 mg PO DAILY lisinopriL 40 mg PO QAM Simvastatin [Zocor] 20 mg PO DAILY Metoprolol Tartrate [Lopressor] 50 mg PO BID Levothyroxine Sodium [Synthroid] 200 mcg PO QAM Docusate [Colace] 100 mg PO DAILY PRN PRN Reason: Constipation Tamsulosin HCl [Flomax] 0.4 mg PO DAILY Levothyroxine Sodium [Synthroid] 25 mcg PO DAILY Aspirin 81 mg PO DAILY Erythromycin Base in Ethanol [Erygel 2% Gel] 1 applic TOPICAL BID PRN PRN Reason: back pain Ketorolac [Toradol] 10 mg PO Q6HR PRN PRN Reason: Moderate Pain (Scale 4 To 6) HYDROcodone/APAP 7.5-325MG [[place] 7.5-325] 1 tab PO Q6HR PRN PRN Reason: Moderate Pain (Scale 4 To 6) Discharge Medication List Dapsone 25 mg PO DAILY 01/17/18 [History] lisinopriL 40 mg PO QAM 01/17/18 [History] Levothyroxine Sodium [Synthroid] 200 mcg PO QAM 04/27/21 [History] Metoprolol Tartrate [Lopressor] 50 mg PO BID 04/27/21 [History] Simvastatin [Zocor] 20 mg PO DAILY 04/27/21 [History] Aspirin 81 mg PO DAILY 05/11/21 [History] Docusate [Colace] 100 mg PO DAILY PRN 02/07/23 [History] Erythromycin Base in Ethanol [Erygel 2% Gel] 1 applic TOPICAL BID PRN 02/07/23 [History] HYDROcodone/APAP 7.5-325MG [[place] 7.5-325] 1 tab PO Q6HR PRN 02/07/23 [History] Ketorolac [Toradol] 10 mg PO Q6HR PRN 02/07/23 [History] Levothyroxine Sodium [Synthroid] 25 mcg PO DAILY 02/07/23 [History] Tamsulosin HCl [Flomax] 0.4 mg PO DAILY 02/07/23 [History] Colchicine 0.6 mg PO DAILY 30 Days #30 capsule 02/08/23 [Rx] Indomethacin 25 mg PO BID-W/MEALS #14 capsule 02/08/23 [Rx] Oseltamivir [Tamiflu] 75 mg PO Q12HR 4 Days #8 cap 02/08/23 [Rx] Follow up Appointment(s)/Referral(s): Aaron Romero MD [STAFF PHYSICIAN] - 1 Week (OFFICE WILL CALL WITH DATE/TIME. ) Rudi Patterson MD [Primary Care Provider] - 02/12/23 11:00 am Patient Instructions/Handouts: Acute Pericarditis (DC) Discharge Disposition: HOME SELF-CARE
[2023-02-08 13:13] VITALS: BP 97/62; PULSE 82; TEMP 98
[2023-02-08 13:15] VITALS: BMI 34.0
== END 2023-02-08 15:19 | disposition home or self-care (01) | DRG 314 ==
LOC: SUPCPDRO 12:21 → EC 12:21 → 3SCARD 13:44
PROVIDERS: ADMIT Student in an Organized Health Care Education/Training Program; ATTEND Student in an Organized Health Care Education/Training Program
DX: I30.1 Infective pericarditis (principal); U07.1 COVID-19; C64.9 Malignant neoplasm of unspecified kidney, except renal pelvis; C85.90 Non-Hodgkin lymphoma, unspecified, unspecified site; K90.41 Non-celiac gluten sensitivity; D64.9 Anemia, unspecified; R00.0 Tachycardia, unspecified; D50.9 Iron deficiency anemia, unspecified; E78.5 Hyperlipidemia, unspecified; I10 Essential (primary) hypertension; R79.89 Other specified abnormal findings of blood chemistry; J10.1 Influenza due to other identified influenza virus with other respiratory manifestations; Z79.82 Long term (current) use of aspirin; Z79.890 Hormone replacement therapy; Z79.899 Other long term (current) drug therapy; Z85.46 Personal history of malignant neoplasm of prostate; Z85.528 Personal history of other malignant neoplasm of kidney; Z85.820 Personal history of malignant melanoma of skin; Z85.50 Personal history of malignant neoplasm of unspecified urinary tract organ; Z85.850 Personal history of malignant neoplasm of thyroid; Z82.3 Family history of stroke; Z90.49 Acquired absence of other specified parts of digestive tract
CPT/HCPCS: 36415; 71045; 71275; 80053; 83735; 84484; 85025; 85027; 85610; 85730; 93005; 93306; 96360; 99291

== ENCOUNTER → 2023-03-12 | Outpatient (CLI) | payer MEDICARE ==
--- NOTE | 2023-03-12 13:01 | US ---
EXAMINATION TYPE: US venous doppler duplex UE LT DATE OF EXAM: 03/12/2023 COMPARISON: NONE CLINICAL INDICATION: Male, 68 years old with history of R22.33 C64.1; Pt states chemo port within lef t cephalic vein within left forearm/ Chemo port has been removed, but pt has left forearm pain SIDE PERFORMED: Left Left Arm: Negative for DVT. Positive for SVT within left cephalic at left forearm and wrist where pt is having pain Results called to Pily at 's office at time of exam IMPRESSION: Examination is positive for superficial vein thrombosis. No evidence of DVT at this time.
== END | disposition home or self-care (01) ==
LOC: RADUSWWP 12:23
PROVIDERS: ATTEND Internal Medicine Hematology & Oncology
DX: C64.1 Malignant neoplasm of right kidney, except renal pelvis (principal); C96.Z Other specified malignant neoplasms of lymphoid, hematopoietic and related tissue; C43.9 Malignant melanoma of skin, unspecified; I47.1 Supraventricular tachycardia; I82.612 Acute embolism and thrombosis of superficial veins of left upper extremity; M25.529 Pain in unspecified elbow

== ENCOUNTER → 2023-05-30 | Outpatient (CLI) | payer MEDICARE ==
--- NOTE | 2023-05-31 08:23 | CT ---
EXAMINATION TYPE: CT abdomen pelvis wo con DATE OF EXAM: 05/30/2023 COMPARISON: 04/27/2021 HISTORY: Flank pain and left abdominal pain x1 week. CT DLP: 1367 mGycm Examination of the solid and hollow viscera is limited given the lack of contrast. FINDINGS: LUNG BASES: No evidence for nodule. No evidence for infiltrate. Left basilar atelectasis. LIVER/GB: The gallbladder surgically absent. No space-occupying hepatic lesion. PANCREAS: No pancreatic mass identified. No inflammatory process seen. SPLEEN: No evidence for splenomegaly. No intrasplenic lesions seen. ADRENALS: No adrenal nodules identified. No evidence for thickening. KIDNEYS: Previously noted solid mass lower pole right kidney is again noted and measures 3.1 cm versu s 3.1 cm previously. Examination is limited in evaluation given lack of contrast. There is a nonobstr ucting calculus lower pole right kidney which measures 4.5 mm unchanged from prior study. Hypoattenua ting lesion mid pole left kidney is also unchanged and was felt to reflect a cyst on prior examinatio n. No hydronephrosis. BOWEL: Appendix has a normal appearance. No evidence of bowel obstruction. There is a vague area of c olonic wall thickening and minimal pericolonic stranding involving the descending colon sigmoid junct ion image 74 sequence 3. Very mild uncomplicated acute diverticulitis is difficult to exclude. No donald dence for abscess or free fluid. Lymph nodes: Prostate collection in place. Abdominal aorta: Atheromatous changes seen. No evidence for aneurysm. Genital organs: No significant abnormality. Other: No significant abnormality. IMPRESSION: 1.There is a vague area of colonic wall thickening and minimal pericolonic stranding involving the de scending colon sigmoid junction image 74 sequence 3. Very mild uncomplicated acute diverticulitis is difficult to exclude. 2. Solid right renal lesion is redemonstrated however poorly characterized on this noncontrast study.
== END | disposition home or self-care (01) ==
LOC: RADCTMAIN 13:13
PROVIDERS: ATTEND Internal Medicine
DX: K63.89 Other specified diseases of intestine (principal); N28.89 Other specified disorders of kidney and ureter
CPT/HCPCS: 74176

== ENCOUNTER → 2023-07-11 | Outpatient (CLI) | payer MEDICARE | END | disposition home or self-care (01) | LOC: LABWHC1 10:30 | DX: N28.89 Other specified disorders of kidney and ureter (principal) | CPT/HCPCS: 36415; 85730 ==

== ENCOUNTER → 2023-07-27 | Outpatient (CLI) | payer MEDICARE ==
[2023-07-27 12:27] LABS: African American GFR (CKD) >90 (>60 ml/min/1.73 sqM); Blood Urea Nitrogen 12 mg/dL (9-20); Non-African American GFR(CKD) 85 (>60 ml/min/1.73 sqM)
--- NOTE | 2023-07-27 13:04 | CT ---
EXAMINATION TYPE: CT angio chest DATE OF EXAM: 07/27/2023 12:52 PM COMPARISON: 02/07/2023. HISTORY: SOB, difficult to take deep breath in CT DLP: 557.40 mGycm Automated exposure control for dose reduction was used. CONTRAST: CTA scan of the thorax is performed with IV Contrast, patient injected with 100 mL of Isovue 370, pul monary embolism protocol. . FINDINGS: Mediastinum and Roxy: There is no axillary, mediastinal or hilar lymphadenopathy. Pleural and Pericardial spaces: There are trace bilateral pleural effusions. Upper Abdomen: The visualized upper abdomen is unremarkable. Cardiovascular: The thoracic aorta is normal in size without evidence of aneurysm or dissection. Pulmonary Artery: There are no filling defects in the pulmonary arteries. Lung Parenchyma and Airways: There is some scattered plate like parenchymal bands of opacities in the right middle lobe, lower lobes bilaterally and lingular segment of the left upper lobe which are fav ored to represent atelectasis. Bones: No fracture or aggressive osseous lesion. IMPRESSION: 1. No evidence of pulmonary embolism. 2. No evidence of thoracic aortic aneurysm or dissection. 3. Bilateral atelectasis as described above. 4. Trace bilateral pleural effusions.
== END | disposition home or self-care (01) ==
LOC: RADCTMAIN 11:40
PROVIDERS: ATTEND Internal Medicine Hematology & Oncology
DX: I26.99 Other pulmonary embolism without acute cor pulmonale (principal); J90 Pleural effusion, not elsewhere classified; J98.11 Atelectasis
CPT/HCPCS: 82565; 84520; 71275; 36415; Q9967

== ENCOUNTER → 2023-11-15 | Outpatient (CLI) | payer MEDICARE ==
[2023-11-15 09:13] LABS: African American GFR (CKD) >90 (>60 ml/min/1.73 sqM); Anion Gap 6 mmol/L; Blood Urea Nitrogen 11 mg/dL (9-20); Calcium 9.4 mg/dL (8.4-10.2); Carbon Dioxide 32 mmol/L (22-30); Chloride 103 mmol/L (98-107); Glucose 115 mg/dL (74-99); Non-African American GFR(CKD) 79 (>60 ml/min/1.73 sqM); Potassium 4.1 mmol/L (3.5-5.1); Sodium 141 mmol/L (137-145)
--- NOTE | 2023-11-15 10:56 | CT ---
EXAMINATION TYPE: CT abdomen pelvis w con DATE OF EXAM: 11/15/2023 COMPARISON: 05/30/2023. 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 CT DLP: 2267.20 mGycm Automated exposure control for dose reduction was used. TECHNIQUE: Helical acquisition of images was performed from the lung bases through the pelvis. CONTRAST: Performed with Oral Contrast and with IV Contrast, patient injected with 100 mL of Isovue 300. FINDINGS: LOWER CHEST : The visualized lung bases are clear. There are no pleural or pericardial effusions. ABDOMEN: Liver and Biliary system: Normal. Adrenal glands: Normal. Kidneys and ureters: Ablation site seen within the inferior pole of the right kidney that measures ap proximately 3.4 x 2.6 cm in diameter. Residual enhancement is difficult to assess due to the single p hase of contrast. High density lesion in the interpolar region of the left kidney measuring 2.9 cm in diameter is indeterminate on a single phase evaluation. There is a subcentimeter hypodensity in the inferior pole of the left kidney that is too small to fully characterize. These appear not significan tly changed since the previous examination. Spleen: Normal. Pancreas: Normal. Gallbladder: Surgically absent. Lymph nodes, Peritoneum and mesentery: There is no mesenteric or retroperitoneal lymphadenopathy. Gastrointestinal tract: There are no dilated loops of bowel or free intraperitoneal air. The appe ndix is normal. There is moderate descending colonic and sigmoid colonic diverticulosis without evide nce of diverticulitis. Aorta/IVC: There is mild vascular calcification throughout the abdominal aorta without evidence of aneurysmal dilation or dissection. IVC normal. Abdominal wall: Normal. PELVIS: Fluid: There is no free fluid in the pelvis. Lymph Nodes: There is no pelvic or inguinal lymphadenopathy.. Urinary bladder: Normal. BONES: 1 anterolisthesis of L5 on S1 with bilateral pars interarticular is defects. Moderate degener ative disc space narrowing is also seen at this level. 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 IMPRESSION: 1. Patient's site in the inferior pole the right kidney as above. This is indeterminate for detection of definitive enhancement due to the single phase evaluation. 2. Slightly complex lesion within the left kidney is higher density than a simple cyst and a complex or proteinaceous cyst would be a consideration with malignancy not excluded. The overall size is conor lar to the previous examination. 3. Diverticulosis without evidence of diverticulitis.
== END | disposition home or self-care (01) ==
LOC: RADCTMAIN 08:00
PROVIDERS: ATTEND Student in an Organized Health Care Education/Training Program
DX: K57.30 Diverticulosis of large intestine without perforation or abscess without bleeding (principal); N28.89 Other specified disorders of kidney and ureter; C64.1 Malignant neoplasm of right kidney, except renal pelvis; Z90.49 Acquired absence of other specified parts of digestive tract
CPT/HCPCS: 80048; 74177; 36415; Q9967

== ENCOUNTER → 2024-06-12 | Outpatient (CLI) | payer MEDICARE ==
--- NOTE | 2024-06-12 18:36 | NM ---
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 I mages acquired 3 hours post injection. FINDINGS: Scattered degenerative tracer activity suggestive of both shoulders, sternoclavicular joints, both kn ees, posterior elements scattered within the cervical spine. Additional periodontal disease is sugges antoni. No suspicious distribution of tracer activity is seen. IMPRESSION: Scattered osteoarthritic change as above and some periodontal disease. No scintigraphic e vidence for osseous metastatic disease.
== END | disposition home or self-care (01) ==
LOC: RADNMMAIN 07:24
PROVIDERS: ATTEND Internal Medicine Hematology & Oncology
DX: C88.4 Extranodal marginal zone B-cell lymphoma of mucosa-associated lymphoid tissue [MALT-lymphoma]
CPT/HCPCS: 78306

== ENCOUNTER → 2024-08-21 | Outpatient (CLI) | payer MEDICARE ==
--- NOTE | 2024-08-21 11:53 | XR ---
EXAMINATION TYPE: XR chest 2V DATE OF EXAM: 08/21/2024 CLINICAL HISTORY: R04.2 HEMOPTYSIS TECHNIQUE: Frontal and lateral views of the chest are obtained. COMPARISON: 02/07/2023 FINDINGS: There is no focal air space opacity, pleural effusion, or pneumothorax seen. The cardiac silhouette size is within normal limits. The osseous structures are intact. IMPRESSION: No acute cardiopulmonary process. [facility], , 08/21/2024 11:51 AM
== END | disposition home or self-care (01) ==
LOC: RADXRMAIN 10:45
PROVIDERS: ATTEND Internal Medicine
DX: R04.2 Hemoptysis (principal); R06.89 Other abnormalities of breathing
CPT/HCPCS: 71046

== ENCOUNTER → 2025-04-30 | Outpatient (CLI) | payer MEDICARE ==
--- NOTE | 2025-04-30 13:34 | MR ---
MR MRCP INDICATION: Patient age:Male; 70 years old; Reason for study: C96.Z cyst of pancreas; [facility]. COMPARISON: MRI abdomen 01/05/2025, 05/26/2024, CT abdomen and pelvis 07/28/2024, 11/15/2023, 05/30/2023 . TECHNIQUE: Multi planar, T2-weighted imaging with and without fat saturation and chemical shift imag ing was performed of the abdomen. Then, heavily T2 weighted imaging was utilized in order to study th e biliary system. Maximum intensity projection images were reconstructed from the original data of t he biliary tree. No Gadolinium given. FINDINGS: MRCP: The intrahepatic ducts have a normal appearance. The common bile duct at the level of the barnett creatic head measures 5 mm in size. The common hepatic duct measures 6 mm in size. The gallbladder is surgically absent. No pancreatic ductal dilatation. Stable pancreatic tail 1 cm T2 hyperintense cystic lesion. Stable pa ncreatic body 0.9 cm T2 hyperintense cystic lesion. Stable pancreatic head 0.7 cm T2 hyperintense cys tic lesion. Additional smaller scattered foci throughout the pancreas. Some of these appear to commun icate with the pancreatic duct. No mural nodularity identified. Abdomen: The adrenal glands have a normal noncontrast appearance. Liver is mildly enlarged measuring 20.4 cm in CC dimension. No significant drop in signal on out of phase imaging to suggest fatty infil tration. Noncirrhotic morphology. Stable T2 cysts with largest measuring 1.6 cm. No hydronephrosis. S table bilateral T2 hyperintense thin-walled renal cysts with largest involving the left mid kidney me asuring up to 3.2 cm. Stable heterogenous right renal exophytic lesion measuring up to 3.6 cm. Scatte red distal colonic diverticulosis without evidence for acute diverticulitis. Mild splenomegaly measur ing 15.3 cm in CC dimension. IMPRESSION: 1. Multiple stable T2 hyperintense cystic lesions throughout the pancreas. No pancreatic ductal dila tation. Some of these appear to communicate with the main pancreatic duct. 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 Largest measures up to 1 cm. No high risk stigmata o r worrisome features. Recommend follow-up MRI abdomen/MRCP in one year. 2. No evidence to suggest ductal stricture, choledocholithiasis, or biliary ductal dilatation. 3. Stable postablation changes to the inferior right kidney. 4. Hepatosplenomegaly. [facility], , 04/30/2025 1:31 PM
== END | disposition home or self-care (01) ==
LOC: RADMRIMAIN 07:32
PROVIDERS: ATTEND Internal Medicine Hematology & Oncology
DX: K86.2 Cyst of pancreas (principal); C64.1 Malignant neoplasm of right kidney, except renal pelvis; C96.Z Other specified malignant neoplasms of lymphoid, hematopoietic and related tissue; C88.40 Extranodal marginal zone B-cell lymphoma of mucosa-associated lymphoid tissue [MALT-lymphoma] not having achieved remission; R16.2 Hepatomegaly with splenomegaly, not elsewhere classified
CPT/HCPCS: 74181